=== PATIENT | female | born 1940 | race Caucasian/White ===

== ENCOUNTER 2017-02-16 18:50 | Observation (INO) ==
--- NOTE | 2017-02-16 19:11 | Emergency Department Note ---
Disposition Clinical Impression: Stable angina Chest pain Qualifiers: Chest pain type: chest pain due to myocardial ischemia Ischemic chest pain type : stable angina pectoris Qualified Code(s): I20.8 - Other forms of angina pectoris CKD (chronic kidney disease) Qualifiers: Chronic kidney disease stage: stage 3 (moderate) Qualified Code(s): N18.3 - Chronic kidney disease, stage 3 (moderate) Anemia Qualifiers: Anemia type: iron deficiency Iron deficiency anemia type: other iron deficiency Qualified Code(s): D50.8 - Other iron deficiency anemias Disposition: Admitted As Inpatient Condition: Good Forms: ED Satisfaction Letter Time of Disposition: 21:12 Chest Pain HPI - General Chief Complaint: ED Chest Pain Stated Complaint: chest pain Time Seen by Provider: 02/16/17 18:57 Source: patient Mode of arrival: EMS Limitations: no limitations Vital Signs Reviewed: Yes Nursing Notes Reviewed: Yes - History of Present Illness HPI Narrative: Mrs. Veliz is a 77-year-old woman with a history of CAD, COPD, diabetes, CHF who presents to the ED by EMS for chest pain that has been going on for about 1 week. She said that the pain is intermittent in nature and is brought on by activities such as getting up to use the restroom. Rest does seem to make the pain decreased, however it keeps coming back. She is taking nitroglycerin for this pain which relieves the pain initially but then wears off and the pain comes back. She described the pain as a pressure in her left chest which radiates towards her jaw. She says that the pain is very severe and is wondering the entire time. The pain is also associated with shortness of breath , palpitations and diaphoresis. she has had some nausea with no vomiting associated with this. She does say that this feels almost exactly like previous heart attacks that she has had. In addition to this, the patient says that she has had increased swelling in her left leg which apparently has a prosthetic vein. Severity scale (1-10): 10 - Related Data Home Medications Medication Instructions Recorded Confirmed Atenolol [Tenormin] 50 mg PO DAILY 03/23/15 09/26/16 Cholecalciferol (Vitamin D3) 2,000 unit PO DAILY 03/23/15 09/26/16 [Vitamin D3] Clopidogrel [Plavix] 75 mg PO DAILY 03/23/15 09/26/16 Cyanocobalamin (Vitamin B-12) 1,000 mcg PO DAILY 03/23/15 09/26/16 [Vitamin B-12] Isosorbide MONOnitrate [Isosorbide 120 mg PO DAILY 03/23/15 09/26/16 Mononitrate ER] Magnesium Oxide [Magnesium] 400 mg PO DAILY 03/23/15 09/26/16 Pravastatin Sodium [Pravachol] 40 mg PO DAILY 03/23/15 09/26/16 Warfarin [Coumadin] 2 mg PO 1800 03/23/15 09/26/16 HYDROcodone/Acet 5/325 mg [[place] 1 tab PO Q6H PRN 09/26/16 09/26/16 5-325 mg] Insulin NPH Human Isophane 0 units SQ TID PRN 09/26/16 09/26/16 [Novolin N] Nitroglycerin 0.4 mg PO Q5M PRN 09/26/16 09/26/16 Previous Rx's Medication Instructions Recorded Budesonide/Formoterol 160/4.5 1 puff IH BIDR 30 Days hfa.aer.ad 04/01/15 [Symbicort 160/4.5] Ciprofloxacin [Cipro] 500 mg PO BID #14 tablet 09/26/16 HYDROcodone/Acet 5/325 mg [[place] 1 tab PO Q4H PRN #15 tab 09/26/16 5-325 mg] Allergies Allergy/AdvReac Type Severity Reaction Status Date / Time Hydromorphone [From Dilaudid] Allergy Severe Anaphylaxis Verified 09/26/16 13:12 diphenhydramine Allergy Intermediate See Verified 09/26/16 13:12 Comments acetaminophen [From Percocet] Allergy Hives Verified 09/26/16 13:12 codeine Allergy Hives Verified 09/26/16 13:12 morphine Allergy Hives Verified 09/26/16 13:12 Oxycodone [From Percocet] Allergy Hives Verified 09/26/16 13:12 Penicillins Allergy See Verified 09/26/16 13:12 Comments pioglitazone [From Actos] Allergy See Verified 09/26/16 13:12 Comments ivp dye Allergy Severe Swelling Uncoded 09/26/16 13:12 of Lip/Tongue/Throat Constitutional: Reports: weakness. Denies: fever, chills Eyes: Denies: vision change ENT ED: Denies: congestion Cardiovascular: Reports: chest pain, palpitations, dyspnea on exertion, orthopnea, edema Respiratory: Reports: cough, dyspnea. Denies: sputum production Gastrointestinal: Reports: abdominal pain, nausea. Denies: vomiting, hematemesis Genitourinary: Denies: urgency, dysuria, frequency Musculoskeletal: Reports: neck pain, myalgia. Denies: back pain Integumentary: Denies: rash Neurological: Reports: weakness. 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 Patient appears distressed AAOx3 HEENT: PERRL/EOMI, oropharynx clear, Normocephalic, atraumatic Neck: Supple. No adenopathy. Cardiac: RRR, no murmur, +S1/S2 Pulmonary: CTA bilaterally, however technically challenging exam because patient was unwilling to sit up appropriately Abdomen: soft, nontender, BS noted, no guarding MSK: ROM intact, no joint swelling noted Extremities: Left-sided lower extremity edema worse than right, no cyanosis or clubbing Neuro: A&Ox3, moves all extremities, no focal deficits Psych: Appropriate mood and behavior - General Limitations: no limitations General appearance: alert, in no apparent distress Course Vital Signs Temperature 98.5 F 02/16/17 18:51 Pulse Rate 81 02/16/17 18:51 Respiratory Rate 26 02/16/17 18:51 Blood Pressure 175/82 02/16/17 18:51 O2 Sat by Pulse Oximetry 98 02/16/17 18:51 Temperature 98.5 F 02/16/17 18:51 Pulse Rate 72 02/16/17 20:00 Respiratory Rate 20 02/16/17 20:00 Blood Pressure 174/74 02/16/17 20:00 O2 Sat by Pulse Oximetry 100 02/16/17 20:00 Oxygen Delivery Oxygen Delivery Nasal Cannula Chest Pain - MDM Narrative Medical decision making narrative: I reviewed this patient's labs, imaging, EKG. She does present with 1 week history of chest pain with ST depression in inferolateral leads. Does have a long-standing history of CAD and has had NSTEMIs in the past. Initial troponins were negative at this time. 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 Additionally, the patient does not have tachycardia or other indicators of PE, however she does have a history of DVTs I have ordered a venous Doppler ultrasound which has not been resulted at this time but will be followed up on by the hospitalist. The patient also does have a elevated creatinine however this appears to be chronic and no worse than previous. Additionally the patient does have an anemia which actually seems improved compared to previous visits. On arrival I did provide the patient with aspirin, nitroglycerin paste, and pain medication. I did provide the patient with [place] as because that is when she is home. Additionally the patient says that she did not take her blood pressure medications this morning, which makes sense because her blood pressure is relatively elevated. I have ordered the patient's home medications along with the nitro paste, and sinus without hospitalist. The patient will be admitted for chest pain rule out, and has been accepted by the hospitalist. The patient agrees to this plan. - Medical Records Medical records reviewed: Yes I reviewed the patient's medical records. - Lab Data Lab results reviewed: Yes I reviewed the patient's lab results. Result diagrams: 02/16/17 19:05 02/16/17 19:05 Lab Results 02/16/17 02/16/17 02/16/17 Range/Units 19:05 19:05 19:05 WBC 7.7 (4.3-11.1) K/mcL RBC 3.42 L (3.82-4.97) M/mcL Hgb 10.7 L (11.5-15.4) g/dL Hct 33.0 L (35.3-44.9) % MCV 96.5 (83.0-100.0) fL MCH 31.3 (28.0-33.3) pg MCHC 32.4 (31.6-35.5) g/dL RDW 13.7 (11.5-14.5) % Plt Count 260 (140-400) K/mcL MPV 9.2 L (9.4-12.4) fL Immature Gran % 0.1 (0-4) % Seg Neutrophils % 52.8 % Lymphocytes % 37.6 % Monocytes % 8.1 % Eosinophils % 1.0 % Basophils % 0.4 % Neutrophils # 4.0 (1.6-8.9) K/mcL Lymphocytes # 2.9 (0.6-4.6) K/mcL Monocytes # 0.6 (0.0-1.3) K/mcL Eosinophils # 0.1 (0.0-0.6) K/mcL Basophils # 0.0 (0.0-0.2) K/mcL PT 20.7 H (9.4-12.1) Seconds INR 1.9 Sodium 136 (136-145) mEq/L Potassium 4.3 (3.5-5.1) mEq/L Chloride 105 (98-107) mEq/L Carbon Dioxide 27 (23-29) mEq/L BUN 42 H (8-23) mg/dL Creatinine 1.47 H (0.60-1.20) mg/dL Est GFR ( Amer) 42 L (> 60) Est GFR (Non-Af Amer) 35 L (> 60) BUN/Creatinine Ratio 29 H (6-26) Glucose 195 H (70-105) mg/dL Calculated Osmolality 298 (280-300) Calcium 9.3 (8.6-10.3) mg/dL Troponin I (< 0.04) ng/mL 02/16/17 Range/Units 19:05 WBC (4.3-11.1) K/mcL RBC (3.82-4.97) M/mcL Hgb (11.5-15.4) g/dL Hct (35.3-44.9) % MCV (83.0-100.0) fL MCH (28.0-33.3) pg MCHC (31.6-35.5) g/dL RDW (11.5-14.5) % Plt Count (140-400) K/mcL MPV (9.4-12.4) fL Immature Gran % (0-4) % Seg Neutrophils % % Lymphocytes % % Monocytes % % Eosinophils % % Basophils % % Neutrophils # (1.6-8.9) K/mcL Lymphocytes # (0.6-4.6) K/mcL Monocytes # (0.0-1.3) K/mcL Eosinophils # (0.0-0.6) K/mcL Basophils # (0.0-0.2) K/mcL PT (9.4-12.1) Seconds INR Sodium (136-145) mEq/L Potassium (3.5-5.1) mEq/L Chloride (98-107) mEq/L Carbon Dioxide (23-29) mEq/L BUN (8-23) mg/dL Creatinine (0.60-1.20) mg/dL Est GFR ( Amer) (> 60) Est GFR (Non-Af Amer) (> 60) BUN/Creatinine Ratio (6-26) Glucose (70-105) mg/dL Calculated Osmolality (280-300) Calcium (8.6-10.3) mg/dL Troponin I < 0.03 (< 0.04) ng/mL - Radiology Data Radiology results reviewed: Yes I reviewed the patient's radiology results. - EKG Data EKG attestation: Yes I reviewed and interpreted this EKG. EKG results narrative: EKG demonstrates normal sinus rhythm with a ventricular rate of 81 UT interval 159 QRS duration [address] depression in inferolateral leads specifically in leads 1 and 2 with apparent reciprocal changes. Heart Score - Score History: Moderately Suspicious EKG: Significant ST-Depression Age: Greater than 65 Risk Factors: Equal/Greater than 3 risk factor or history of atherosclerotic disease Troponin: Less than normal limit HEART Score Total: 7
--- NOTE | 2017-02-16 19:12 | Emergency Department Note ---
START Narrative - START START: I did see the patient me upon arrival and also spoke with the paramedics and the patient does have chest pain. Radiates under the breast. Occasionally radiates the back. She does have a history of extensive vascular Hellums I did review the record. I did review her EKG here today showing a normal sinus rhythm with a rate of 81 and evidence of inferior lateral ischemia. The patient does have labs ordered. The patient will be admitted to the hospital. 1911
[2017-02-16 19:19] LABS: Basophils % 0.4 %; Eosinophils # 0.1 K/mcL (0.0-0.6); Hemoglobin 10.7 g/dL (11.5-15.4); Immature Granulocytes % 0.1 % (0-4); Lymphocytes # 2.9 K/mcL (0.6-4.6); Lymphocytes % 37.6 %; Mean Corpuscular HGB Conc 32.4 g/dL (31.6-35.5); Mean Corpuscular Hemoglobin 31.3 pg (28.0-33.3); Mean Corpuscular Volume 96.5 fL (83.0-100.0); Mean Platelet Volume 9.2 fL (9.4-12.4); Monocytes # 0.6 K/mcL (0.0-1.3); Monocytes % 8.1 %; Platelet Count 260 K/mcL (140-400); Red Blood Count 3.42 M/mcL (3.82-4.97); Red Cell Distribution Width 13.7 % (11.5-14.5); Segmented Neutrophils % 52.8 %
[2017-02-16 19:26] LABS: INR 1.9; Prothrombin Time 20.7 Seconds (9.4-12.1)
[2017-02-16 19:43] LABS: Calcium 9.3 mg/dL (8.6-10.3); Potassium 4.3 mEq/L (3.5-5.1)
[2017-02-16] MEDS ORDERED: Aspirin 81 MG TAB.CHEW PO STA (19:54)
[2017-02-16] MEDS ORDERED: *HR* HYDROcodone/Acet 5/325 mg TABLET PO ONE (19:55)
[2017-02-16] MEDS ORDERED: Nitroglycerin 0.4 MG TAB.SUBL SL PRN (19:55)
[2017-02-16] MEDS ORDERED: Nitroglycerin 1 INCH/GM PACKET TP ONE (21:03)
[2017-02-16] MEDS ORDERED: Naloxone 0.4 MG/ML INJ IVP PRN (22:44)
--- NOTE | 2017-02-16 22:56 | Internal Med History&Physical ---
<Jacinto Tavarez - Last Filed: 02/16/17 22:51> Date of Encounter: 02/16/17 Time of Encounter: 22:51 Assessment and Plan (1) Chest pain Current visit: Yes Status: Acute Presents today with left-sided chest pain with radiation to left neck, left shoulder and left axilla. Due to risk factors and prior history and concern the patient may be having an acute coronary event. Patient states chest pain is worse with exertion and that she is dyspneic. Chest pain was not responsive to sublingual nitroglycerin. However, and has somewhat improved with nitroglycerin paste. Additionally, she appears to have chest wall tenderness to palpation. She is currently resting in bed with mild discomfort continuing her left chest. She has multiple risk factors including prior MN, prior CABG, CAD, diabetes. Initial troponin negative at 0.03, EKG shows no ischemia. CXR showed mild pulmonary edema. Due to prior history I will continue to workup to rule out ACS -Obtain TTE now -Serial troponins -Continuous telemetry, continuous SPO2 monitoring -Continue beta maria d, statin, Plavix, warfarin -She received 325 of aspirin in the ED, start 81 mg aspirin daily -Fasting lipid panel in the morning -Continue home medications -Nuclear Stress test in the morning -Nothing by mouth after midnight Qualifiers: Chest pain type: chest pain due to myocardial ischemia Ischemic chest pain type: stable angina pectoris Qualified Code(s): I20.8 - Other forms of angina pectoris (2) HTN (hypertension) Current visit: Yes Status: Acute History of hypertension. Systolic blood pressure today in the 160s. Patient is on atenolol at home for hypertension. I will add hydralazine 10 mg IV push every 6 hours when necessary for SBP greater than 160 Qualifiers: Hypertension type: unspecified Qualified Code(s): I10 - Essential (primary ) hypertension (3) Acute pain of left lower extremity Current visit: Yes Status: Acute Presents today with acute pain and left lower extremity. Left lower extremity is extremely tender to palpation. No circulatory compromise noted upon examination. Palpable PT/DP pulses, no mottling, edema or cyanosis noted. -Due to prior history of DVTs and PE I will obtain bilateral venous Doppler of lower extremity -Patient is on Coumadin for prior history of DVT and PE however she is subtherapeutic at this time -Heparin 5000 units subcutaneous twice a day -Continue to monitor PT/INR -Continue Coumadin with pharmacy to dose (4) CKD (chronic kidney disease) Current visit: Yes Status: Chronic History of stage III renal disease. Serum creatinine at patient's baseline. Recheck serum creatinine in the morning Qualifiers: Chronic kidney disease stage: stage 3 (moderate) Qualified Code(s): N18.3 - Chronic kidney disease, stage 3 (moderate) (5) Anemia Current visit: Yes Status: Chronic History of iron deficiency anemia. Hemoglobin and hematocrit 10.7/33 which is patient baseline, denies any hematochezia, hematemesis, melena. Continue to monitor, no active bleeding noted Qualifiers: Anemia type: iron deficiency Iron deficiency anemia type: other iron deficiency Qualified Code(s): D50.8 - Other iron deficiency anemias (6) Diabetes Current visit: Yes Status: Chronic History of type 2 diabetes. 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 Currently not on aspirin She noted that she is on Coumadin for history of DVTs Patient is on beta maria d and will continue this at this time Presents today with chest pain, initial troponin negative Continuous telemetry, continuous SPO2 monitoring see additional plan above Qualifiers: [place] vs. transplanted heart: [place] heart Associated angina: with unspecified angina Qualified Code(s): I25.709 - Atherosclerosis of coronary artery bypass graft(s), unspecified, with unspecified angina pectoris Internal Medicine - H&P: HPI Chief complaint: chest pain, SOB, LLE tenderness Admitted From: Home Plans for Post Hospital Care: Home History of present illness: Ms. Veliz is a 77 year old female with a PMH of CKD stage III, CAD, COPD, DM, CHF, arthritis, kidney stones, MN, prior PE and prior CABG. She presents at [facility] today with a one-week history of left-sided chest pain with radiation to the left shoulder and left jaw and left axilla. She reports that with the chest pain is also experiencing shortness of breath and lightheadedness. She denies any diaphoresis or nausea. Additionally, she denies any fevers, chills, abdominal pain, vomiting or diarrhea. She does admit to left lower extremity swelling and tenderness. Initial troponin in the emergency department was 0.03. Chest x-ray shows mild pulmonary edema. Past Med Surg Social Fam HX - Past Medical History Medical history: arthritis, cancer, CHF, COPD, coronary artery disease, DVT, diabetes, hypertension, kidney stones, myocardial infarction, pulmonary embolus , renal disease Psychiatric history: no psych history - Past Surgical History Surgical History: ureteral stent, other - Social History Smoking Status: Never smoker Smokeless Tobacco Status: No Alcohol use: none Drug use: none - Additional Family History Additional family history: Noncontributory Internal Medicine - H&P: Meds Atenolol [Tenormin] 50 mg PO DAILY 03/23/15 [History] Cholecalciferol (Vitamin D3) [Vitamin D3] 2,000 unit PO DAILY 03/23/15 [History] Clopidogrel [Plavix] 75 mg PO DAILY 03/23/15 [History] Cyanocobalamin (Vitamin B-12) [Vitamin B-12] 1,000 mcg PO DAILY 03/23/15 [ History] Isosorbide MONOnitrate [Isosorbide Mononitrate ER] 120 mg PO DAILY 03/23/15 [ History] Magnesium Oxide [Magnesium] 400 mg PO DAILY 03/23/15 [History] Pravastatin Sodium [Pravachol] 40 mg PO DAILY 03/23/15 [History] Warfarin [Coumadin] 2 mg PO 1800 03/23/15 [History] Budesonide/Formoterol 160/4.5 [Symbicort 160/4.5] 1 puff IH BIDR 30 Days hfa.aer.ad 04/01/15 [Rx] Ciprofloxacin [Cipro] 500 mg PO BID #14 tablet 09/26/16 [Rx] HYDROcodone/Acet 5/325 mg [[place] 5-325 mg] 1 tab PO Q4H PRN #15 tab 09/26/16 [Rx ] HYDROcodone/Acet 5/325 mg [[place] 5-325 mg] 1 tab PO Q6H PRN 09/26/16 [History] Insulin NPH Human Isophane [Novolin N] 0 units SQ TID PRN 09/26/16 [History] Nitroglycerin 0.4 mg PO Q5M PRN 09/26/16 [History] 3 Allergy/AdvReac Type Severity Reaction Status Date / Time Hydromorphone [From Dilaudid] Allergy Severe Anaphylaxis Verified 09/26/16 13:12 diphenhydramine Allergy Intermediate See Verified 09/26/16 13:12 Comments acetaminophen [From Percocet] Allergy Hives Verified 09/26/16 13:12 codeine Allergy Hives Verified 09/26/16 13:12 morphine Allergy Hives Verified 09/26/16 13:12 Oxycodone [From Percocet] Allergy Hives Verified 09/26/16 13:12 Penicillins Allergy See Verified 09/26/16 13:12 Comments pioglitazone [From Actos] Allergy See Verified 09/26/16 13:12 Comments ivp dye Allergy Severe Swelling Uncoded 09/26/16 13:12 of Lip/Tongue/Throat All Systems PM: A 10-system review of systems was performed and is negative for pertinent findings except as documented above in the HPI. - Constitutional Constitutional: no chills, no fever(s), no night sweats - Cardiovascular Cardiovascular ROS IM: as per HPI - Respiratory Respiratory: as per HPI - Gastrointestinal Gastrointestinal: no abdominal pain, no diarrhea, no hematemesis, no hematochezia, no melena, no nausea, no vomiting - Genitourinary Genitourinary: no change in urinary stream, no dysuria, no flank pain, no hematuria - Musculoskeletal Musculoskeletal ROS IM: no numbness, no tingling - Integumentary Integumentary IM: no rash, no unusual bruising - Neurological Neurological ROS: no confusion, no convulsions, no focal weakness, no numbness, no tingling, no tremor(s) - Constitutional Vitals: Temp Pulse Resp BP Pulse Ox 98.5 F 68 16 168/68 100 02/16/17 18:51 02/16/17 21:55 02/16/17 21:55 02/16/17 21:55 02/16/17 21:55 General appearance: Present: cooperative, mild distress, A&O X 3, answers questions appropriately - Head Head exam: Present: atraumatic, normocephalic - Eye Eye exam: Present: PERRL, conjuntiva pink, sclera anicteric Pupils: Present: PERRL - Neck Neck exam general surgery: Absent: lymphadenopathy - Respiratory Respiratory exam: Present: chest wall tenderness, decreased breath sounds, CTAB. Absent: accessory muscle use, rales, rhonchi, wheezes, tachypnea - Cardiovascular Cardiovascular exam: Present: RRR, +S1, +S2. Absent: bradycardia, diastolic murmur, gallop, rubs, systolic murmur, tachycardia - GI/Abdominal GI/Abdominal exam: Present: normal bowel sounds, soft, no peritoneal signs. Absent: distended, tenderness - Extremities Exam Extremities exam: Present: calf tenderness (LLE), normal capillary refill, tenderness (LLE), radial pulses palpable and symmetrical. Absent: cyanotic, mottling, pedal edema, warm - Neurological Exam Neurological exam: Present: alert, oriented X3 - Skin Skin exam: Present: dry, intact Internal Med - H&P Results - Labs CBC & Chem 7: 02/16/17 19:05 02/16/17 19:05 - EKG Data -: EKG Interpreted by Myself EKG shows normal: sinus rhythm - EKG Data Prior EKG available for review: yes When compared to previous EKG: there is no significant change Interpretation IM: normal EKG - Diagnostic Studies Chest x-ray Status: image reviewed by me Additional comments: Mild pulmonary edema - VTE Reasons for not Prescribing Prophylaxis: Not indicated-Anticoagulated or INR therapeutic <Jina Sewell - Last Filed: 02/17/17 06:14> Date of Encounter: 02/17/17 Time of Encounter: 03:20 Internal Medicine - H&P: HPI History of present illness: Ms. Veliz is a 77 year old female All Systems PM: A 10-system review of systems was performed and is negative for pertinent findings except as documented above in the HPI. - Constitutional Vitals: Temp Pulse Resp BP Pulse Ox 98.7 F 57 19 122/64 98 02/17/17 04:28 02/17/17 04:28 02/17/17 04:28 02/17/17 04:28 02/17/17 04:28 Internal Med - H&P Results - Labs CBC & Chem 7: 02/17/17 00:29 02/17/17 00:29 Labs: Short CBC 02/17/17 Range/Units 00:29 WBC 8.4 (4.3-11.1) K/mcL Hgb 9.6 L (11.5-15.4) g/dL Hct 29.1 L (35.3-44.9) % Plt Count 247 (140-400) K/mcL Neutrophils # 3.9 (1.6-8.9) K/mcL BMP 02/17/17 00:29 Sodium 136 Potassium 4.3 Chloride 106 Carbon Dioxide 22 L BUN 38 H Creatinine 1.19 Glucose 147 H Calcium 9.0 Cardiac Enzymes 02/17/17 Range/Units 00:29 Troponin I < 0.03 (< 0.04) ng/mL - Attending Attestation Patient is a 77y/o female admitted for chest pain. Patient independently seen and examined at bedside. Resting in bed and reports of pain being controlled with nitro will admit to r/o ACS case discussed with CARIN Tavarez, I agree with his documented findings, assessment, and plan except as listed above
[2017-02-16] MEDS ORDERED: *HR* Dextrose 50 % in Water (Syg) 50 ML SYRINGE IVP PRN (23:05)
[2017-02-16] MEDS ORDERED: D5% in Water 1,000 ML IVC PRN (23:05)
[2017-02-16] MEDS ORDERED: Dextrose Gel 15 GM/37.5 ML TUBE PO PRN ×2 (23:05)
[2017-02-17 00:37] LABS: Basophils % 0.5 %; Eosinophils # 0.1 K/mcL (0.0-0.6); Eosinophils % 1.1 %; Hematocrit 29.1 % (35.3-44.9); Hemoglobin 9.6 g/dL (11.5-15.4); Immature Granulocytes % 0.4 % (0-4); Lymphocytes # 3.7 K/mcL (0.6-4.6); Lymphocytes % 43.8 %; Mean Corpuscular Hemoglobin 31.7 pg (28.0-33.3); Mean Platelet Volume 9.1 fL (9.4-12.4); Monocytes # 0.6 K/mcL (0.0-1.3); Monocytes % 7.5 %; Neutrophils # 3.9 K/mcL (1.6-8.9); Platelet Count 247 K/mcL (140-400); Red Blood Count 3.03 M/mcL (3.82-4.97); Red Cell Distribution Width 13.7 % (11.5-14.5); Segmented Neutrophils % 46.7 %
[2017-02-17 00:57] LABS: Chol/HDL Ratio 3.9 (0-4.9); Potassium 4.3 mEq/L (3.5-5.1)
[2017-02-17] MEDS: Insulin LISPRO 300 UNITS/3 ML VIAL SQ SCH ×5 (01:27→20:51)
[2017-02-17] MEDS: *HR* Heparin 5,000 UNIT/ML VIAL SQ SCH ×2 (01:41→03:29)
[2017-02-17] MEDS ORDERED: *HR* HYDROcodone/Acet 5/325 mg TABLET PO ONE (03:21)
[2017-02-17 06:17] LABS: INR 1.8
[2017-02-17] MEDS: Aspirin 81 MG TAB.CHEW PO SCH (08:20)
[2017-02-17] MEDS: Magnesium Oxide 400 MG TABLET PO SCH (08:20)
[2017-02-17] MEDS: Cholecalciferol (D-3) 1,000 UNIT TABLET PO SCH (08:20)
[2017-02-17] MEDS: Cyanocobalamin (B-12) 1,000 MCG TABLET PO SCH (08:20)
[2017-02-17] MEDS: Isosorbide MONOnitrate (24 HR) 60 MG TAB.ER.24H PO SCH (08:20)
[2017-02-17] MEDS ORDERED: Perflutren Lipid Microsphere 1.3 ML in 0.9 % Sodium Chloride 8.7 ML IVP ONE (08:42)
--- NOTE | 2017-02-17 08:54 | Electrocardiograph Report ---
[address] [place], [place] [address] Test Date: 2017-02-16 Pat Name: China Veliz Department: 102 Room: 3B24 Gender: F Gis Mapping Technician: Maty : 1940 Requested By: Willy Martines Order Number: [id number] Reading MD: Alden Smith MD Measurements Intervals [place] Rate: 81 P: 54 ME: 159 QRS: 17 QRSD: 104 T: 61 QT: 355 QTc: 393 Interpretive Statements SINUS RHYTHM INFEROLATERAL ISCHEMIA Electronically Signed On 02-17-2017 8:52:50 EST by Alden Smith MD
[2017-02-17] MEDS ORDERED: NON-FORMULARY MEDICATION 1 EACH EACH (Pravastatin Sodium [Pravachol] 40 MG) PO SCH (09:00)
[2017-02-17] MEDS: Budesonide/Formoterol 160/4.5 MDI IH SCH ×3 (10:59→22:13)
[2017-02-17 13:06] LABS: Bilirubin,Urine Negative (Negative); Blood,Urine Large (Negative); Clarity,Urine Turbid (Clear); Glucose,Urine (UA) Normal (Normal); Ketones,Urine Trace mg/dL (Negative); Leukocyte Esterase,Urine Large (Negative); Nitrite,Urine Negative (Negative); Protein,Urine >=300 mg/dL (Neg-Trace); Specific Gravity,Urine 1.019 (1.010-1.025); Urobilinogen,Urine Normal (Normal)
[2017-02-17 13:08] LABS: Bacteria,Urine None Seen per hpf (None-Few); Color,Urine Pink (Yellow); RBC,Urine TNTC per hpf (0-3); Squamous Epithelial Cell,Urine Many per lpf (None-Few); WBC,Urine TNTC per hpf (0-3)
[2017-02-17] MEDS: *HR* HYDROcodone/Acet 5/325 mg TABLET PO PRN (13:52)
--- NOTE | 2017-02-17 15:25 | Internal Med Progress Note ---
Date of Encounter: 02/17/17 Time of Encounter: 15:19 - Assessment and plan (1) Hydronephrosis Current Visit: Yes Status: Acute Assessment and plan: 09/2016 renal US with chronic left hydronephrosis unchanged from 02/[address] Urine tea colored, foul, malodorous with thick purulent matter. Rudd catheter placed but removed due to patient discomfort. Empirically treat with Cipro, urology consult. Urince cx ordered. ABD CT/stone protocol pending Qualifiers: Hydronephrosis type: unspecified Qualified Code(s): N13.30 - Unspecified hydronephrosis (2) CAD (coronary artery disease) of bypass graft Current Visit: Yes Status: Acute Assessment and plan: hx CABG. Now with left-sided chest pain with radiation to left neck, left shoulder and left axilla. CXR non-acute. Serial troponins negative, EKG without acute ST changes. TTE with EF 50%, mild diastolic dysfunction and no wall motion abnormalities. Refusing stress test. Cont ASA, within, BB, statin. Cardiology consulted Qualifiers: [place] vs. transplanted heart: [place] heart Associated angina: with unspecified angina Qualified Code(s): I25.709 - Atherosclerosis of coronary artery bypass graft(s), unspecified, with unspecified angina pectoris (3) HTN (hypertension) Current Visit: Yes Status: Acute Assessment and plan: per hx. BP controlled. Cont home BP medication. Monitor BP and titrate PRN Qualifiers: Hypertension type: unspecified Qualified Code(s): I10 - Essential (primary ) hypertension (4) CKD (chronic kidney disease) Current Visit: Yes Status: Chronic Assessment and plan: per hx. Renal function at baseline. Nephrotoxic agents as possible. 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 Cont coumadin (6) DVT prophylaxis Current Visit: Yes Status: Acute Assessment and plan: coumadin - Subjective Interval history: Seen and examined at bedside, she still complains of chest pain. She is refusing stress test. Urine noted to be malodorous, brown with thick relent matter. Patient states that she is supposed to have a Rudd catheter in complains of dysuria and vaginal burning. No shortness of breath. Initially requested a Rudd catheter which was placed however this was removed due to pain and discomfort. - Constitutional Vitals: Temp Pulse Resp BP Pulse Ox 98.5 F 66 14 146/73 100 02/17/17 10:59 02/17/17 10:59 02/17/17 10:59 02/17/17 10:59 02/17/17 10:59 General appearance: Present: cooperative, mild distress, A&O X 3, answers questions appropriately - Head Head exam: Present: atraumatic, normocephalic - Eye Eye exam: Present: PERRL, conjuntiva pink, sclera anicteric Pupils: Present: PERRL - Neck Neck exam general surgery: Present: supple, trachea midline. Absent: lymphadenopathy - Respiratory Respiratory exam: Present: CTAB. Absent: accessory muscle use, rales, rhonchi, wheezes - Cardiovascular Cardiovascular exam: Present: RRR, +S1, +S2. Absent: diastolic murmur, gallop, rubs, systolic murmur - GI/Abdominal GI/Abdominal exam: Present: normal bowel sounds, soft, no peritoneal signs. Absent: distended, tenderness - Extremities Exam Extremities exam: Present: warm, radial pulses palpable and symmetrical. Absent : calf tenderness, cyanotic, pedal edema - Neurological Exam Neurological exam: Present: CN II-XII intact, oriented X3, no focal deficits. Absent: pronater drift, facial droop, speech deficit - Skin Skin exam: Present: dry, intact Internal Medicine: Result - Labs CBC & Chem 7: 02/17/17 00:29 02/17/17 00:29 Labs: Short CBC 02/17/17 Range/Units 00:29 WBC 8.4 (4.3-11.1) K/mcL Hgb 9.6 L (11.5-15.4) g/dL Hct 29.1 L (35.3-44.9) % Plt Count 247 (140-400) K/mcL Neutrophils # 3.9 (1.6-8.9) K/mcL BMP 02/17/17 00:29 Sodium 136 Potassium 4.3 Chloride 106 Carbon Dioxide 22 L BUN 38 H Creatinine 1.19 Glucose 147 H Calcium 9.0 Cardiac Enzymes 02/17/17 02/17/17 Range/Units 00:29 05:56 Troponin I < 0.03 < 0.03 (< 0.04) ng/mL Urine 02/17/17 Range/Units 12:30 Urine Color [place] (Yellow) Urine Clarity Turbid A (Clear) Urine pH 7.0 (5.0-8.0) pH Units Ur Specific [place] 1.019 (1.010-1.025) Urine Protein >=300 H (Neg-Trace) mg/dL Urine Glucose (UA) Normal (Normal) mg/dL - ABG Interpretation ABG results: PT/INR, D-dimer PT 20.0 Seconds (9.4-12.1) H 02/17/17 05:56 - Impressions Impressions Echocardiogram 02/17/17 22:44 Impressions: LVEF 50-55%. Normal LV chamber size, wall thickness and function. Atypical septal motion consistent with post-operative status. Mild left ventricular diastolic dysfunction. Normal right ventricular structure and function. Mild mitral regurgitation. Mild tricuspid regurgitation. Mild pulmonary hypertension. Estimated RVSP 38 mmHg. Left Ventricular Wall Motion: Rest Echo Findings All wall segments showed normal motion. Findings: Study Quality * Technically adequate exam. ECG Findings * Normal sinus rhythm. Left Ventricle * LVEF 50-55%. * Normal LV chamber size, wall thickness and function. * Atypical septal motion consistent with post-operative status. * Mild left ventricular diastolic dysfunction. Right Ventricle * Normal right ventricular structure and function. Left Atrium * Mild to moderately dilated left atrium. Right Atrium * Mildly dilated right atrium. Interatrial Septum * Interatrial septum not well evaluated. Aortic Valve * Trileaflet aortic valve. * Mildly sclerotic aortic valve leaflets. * No aortic regurgitation. * No aortic stenosis. Mitral Valve * Mildly thickened mitral valve leaflets. * Mild mitral annular calcification * Mild mitral regurgitation. * No mitral stenosis. Tricuspid Valve * Normal tricuspid valve structure. * Mild tricuspid regurgitation. * Mild pulmonary hypertension. Estimated RVSP 38 mmHg. Pulmonic Valve * Normal pulmonic valve structure and function. * Trace pulmonic regurgitation. Aorta * Normally sized aortic root. Pericardium * The pericardium appears normal. IVC * Normal IVC dimensions and inspiratory collapse. Pulmonary Artery * Normal visualized portions of the main pulmonary artery. - VTE Reasons for not Prescribing Prophylaxis: Not indicated-Anticoagulated or INR therapeutic Consult Discharge Plan - Plan Referrals: Danny Rodarte Jr, MD [Primary Care Provider] - 03/01/17 10:00 am
[2017-02-17] MEDS ORDERED: Warfarin perPT PO PRN (18:00)
[2017-02-17] MEDS ORDERED: *HR* Warfarin 2 MG TABLET PO ONE (18:00)
--- NOTE | 2017-02-17 20:36 | Urology - Consult Note ---
Date of Encounter: 02/17/17 Time of Encounter: 17:34 - Assessment and Plan (1) Hydronephrosis Current Visit: Yes Status: Acute Assessment and plan: It appears the hydronephrosis is somewhat chronic and been present over the last year. Dr. Dubose attempted a retrograde pyelogram and stent placement but was unsuccessful secondary to murky urine and poor visibility. The procedure was abandoned. We'll perform a CT scan at this hospitalization to better evaluate the etiology of the hydronephrosis. I will be reluctant to proceed with surgical intervention (cysto and stent) during this hospitalization as the condition is chronic and Dr. Dubose was unsuccessful earlier in the year. Further recommendations after the CT scan. Qualifiers: Hydronephrosis type: unspecified Qualified Code(s): N13.30 - Unspecified hydronephrosis (2) Urine purulent Current Visit: Yes Status: Acute Assessment and plan: This problem was present at the time of Dr. Dubose's attempted stent placement. Cultures and consider long-term antibiotics. CT scan will better determine if there is a concerning etiology for the hydronephrosis and purulent urine Urology CN:HPI Consult date: 02/17/17 Reason for consult Urology: Hydronephrosis History of present illness: Patient admitted for chest pain. Found to have cloudy extremely foul-smelling urine. Catheter placement drained thick purulent urine. History of hydronephrosis. Reviewing history and appears that Dr. Dubose attempted a retrograde pyelogram and ureteral stent placement earlier in the year but was unsuccessful secondary to significant bleeding and murky urine. No further follow-up after. Patient reports no flank pain. Past Med Surg Social Fam HX - Past Medical History Medical history: arthritis, cancer, CHF, COPD, coronary artery disease, DVT, diabetes, hypertension, kidney stones, myocardial infarction, pulmonary embolus , renal disease Psychiatric history: no psych history - Past Surgical History Surgical History: ureteral stent, other - Social History Smoking Status: Never smoker Smokeless Tobacco Status: No Alcohol use: none Drug use: none - Family History Mother Hx Family Cardiac Disorders: Yes Hx Family Neurologic Disorders: Yes (CVA) Medications and Allergies Atenolol [Tenormin] 50 mg PO BID 03/23/15 [History] Cholecalciferol (Vitamin D3) [Vitamin D3] 2,000 unit PO DAILY 03/23/15 [History] Clopidogrel [Plavix] 75 mg PO DAILY 03/23/15 [History] Cyanocobalamin (Vitamin B-12) [Vitamin B-12] 1,000 mcg PO DAILY 03/23/15 [ History] Isosorbide MONOnitrate [Isosorbide Mononitrate ER] 120 mg PO DAILY 03/23/15 [ History] Magnesium Oxide [Magnesium] 400 mg PO BID 03/23/15 [History] Pravastatin Sodium [Pravachol] 40 mg PO DAILY 03/23/15 [History] Warfarin [Coumadin] 2 - 4 mg PO DAILY 03/23/15 [History] HYDROcodone/Acet 5/325 mg [[place] 5-325 mg] 1 tab PO Q6H PRN 09/26/16 [History] Insulin NPH Human Isophane [Novolin N] 25 units SQ QAM 09/26/16 [History] Nitroglycerin 0.4 mg PO Q5M PRN 09/26/16 [History] Insulin NPH Human Isophane [Novolin N] 15 unit SQ QPM 02/17/17 [History] 3 Allergy/AdvReac Type Severity Reaction Status Date / Time Hydromorphone [From Dilaudid] Allergy Severe Anaphylaxis Verified 09/26/16 13:12 diphenhydramine Allergy Intermediate See Verified 09/26/16 13:12 Comments acetaminophen [From Percocet] Allergy Hives Verified 09/26/16 13:12 codeine Allergy Hives Verified 09/26/16 13:12 morphine Allergy Hives Verified 09/26/16 13:12 Oxycodone [From Percocet] Allergy Hives Verified 09/26/16 13:12 Penicillins Allergy See Verified 09/26/16 13:12 Comments pioglitazone [From Actos] Allergy See Verified 09/26/16 13:12 Comments ivp dye Allergy Severe Swelling Uncoded 09/26/16 13:12 of Lip/Tongue/Throat Review of Systems - Constitutional fatigue, weakness, no fever(s) - EENT Nose, mouth and throat: no dizziness - Cardiovascular chest pain - Respiratory no cough - Gastrointestinal abdominal pain - Genitourinary Genitourinary: dysuria, vaginal odor - Musculoskeletal back pain - Integumentary no erythema - Neurological no confusion - Psychiatric no anxiety - Hematologic/Lymphatic no easy bleeding - Allergic/Immunologic no throat swelling Exam Initial Vital Signs Temp Pulse Resp BP Pulse Ox 98.5 F 81 26 175/82 98 02/16/17 18:51 02/16/17 18:51 02/16/17 18:51 02/16/17 18:51 02/16/17 18:51 - General physical appearance Present: no distress, chronically ill - Eyes Present: PERRL, conjunctiva is clear - ENT Present: normal nares - Neck Present: no masses - Respiratory Present: normal respiratory effort - Cardiovascular Cardiovascular exam IM: RRR - Abdomen Abdomen: Present: soft, suprapubic tenderness. Absent: masses - Neurologic Present: confused. Absent: disoriented - Additional Findings no cva tenderness Urology Results - Labs 02/17/17 00:29 02/17/17 00:29 Abnormal lab results RBC 3.03 M/mcL (3.82-4.97) L 02/17/17 00:29 Hgb 9.6 g/dL (11.5-15.4) L 02/17/17 00:29 Hct 29.1 % (35.3-44.9) L 02/17/17 00:29 MPV 9.1 fL (9.4-12.4) L 02/17/17 00:29 PT 20.0 Seconds (9.4-12.1) H 02/17/17 05:56 Carbon Dioxide 22 mEq/L (23-29) L 02/17/17 00:29 BUN 38 mg/dL (8-23) H 02/17/17 00:29 Est GFR ( Amer) 54 (> 60) L 02/17/17 00:29 Est GFR (Non-Af Amer) 44 (> 60) L 02/17/17 00:29 BUN/Creatinine Ratio 32 (6-26) H 02/17/17 00:29 Glucose 147 mg/dL (70-105) H 02/17/17 00:29 POC Glucose 288 (58-89) H 02/17/17 17:09 LDL Cholesterol, Calc 111 mg/dL (0-99) H 02/17/17 00:29 Ur Specimen Adequacy See below A 02/17/17 12:30 Urine Clarity Turbid (Clear) A 02/17/17 12:30 Urine Protein >=300 mg/dL (Neg-Trace) H 02/17/17 12:30 Urine Ketones Trace mg/dL (Negative) H 02/17/17 12:30 Urine Blood Large (Negative) H 02/17/17 12:30 Ur Leukocyte Esterase Large (Negative) H 02/17/17 12:30 Urine Microscopic RBC TNTC per hpf (0-3) H 02/17/17 12:30 Urine Microscopic WBC TNTC per hpf (0-3) H 02/17/17 12:30 Ur Squamous Epith Cells Many per lpf (None-Few) H 02/17/17 12:30 Diabetes panel 02/17/17 02/17/17 Range/Units 00:29 00:29 Sodium 136 (136-145) mEq/L Potassium 4.3 (3.5-5.1) mEq/L Chloride 106 (98-107) mEq/L Carbon Dioxide 22 L (23-29) mEq/L BUN 38 H (8-23) mg/dL Creatinine 1.19 (0.60-1.20) mg/dL Glucose 147 H (70-105) mg/dL Calcium 9.0 (8.6-10.3) mg/dL Triglycerides 126 (< 150) mg/dL HDL Cholesterol 47 (40-59) mg/dL Calcium panel 02/17/17 Range/Units 00:29 Calcium 9.0 (8.6-10.3) mg/dL Pituitary panel 02/17/17 Range/Units 00:29 Sodium 136 (136-145) mEq/L Potassium 4.3 (3.5-5.1) mEq/L Chloride 106 (98-107) mEq/L Carbon Dioxide 22 L (23-29) mEq/L BUN 38 H (8-23) mg/dL Creatinine 1.19 (0.60-1.20) mg/dL Glucose 147 H (70-105) mg/dL Calcium 9.0 (8.6-10.3) mg/dL Adrenal panel 02/17/17 Range/Units 00:29 Sodium 136 (136-145) mEq/L Potassium 4.3 (3.5-5.1) mEq/L Chloride 106 (98-107) mEq/L Carbon Dioxide 22 L (23-29) mEq/L BUN 38 H (8-23) mg/dL Creatinine 1.19 (0.60-1.20) mg/dL Glucose 147 H (70-105) mg/dL Calcium 9.0 (8.6-10.3) mg/dL All other labs normal. Consult Discharge Plan - Plan Referrals: Danny Rodarte Jr, MD [Primary Care Provider] - 03/01/17 10:00 am
[2017-02-18 04:03] LABS: Hematocrit 27.9 % (35.3-44.9); Hemoglobin 9.1 g/dL (11.5-15.4); Mean Corpuscular HGB Conc 32.6 g/dL (31.6-35.5); Mean Corpuscular Hemoglobin 31.8 pg (28.0-33.3); Mean Corpuscular Volume 97.6 fL (83.0-100.0); Mean Platelet Volume 9.6 fL (9.4-12.4); Platelet Count 250 K/mcL (140-400); Red Blood Count 2.86 M/mcL (3.82-4.97); Red Cell Distribution Width 13.6 % (11.5-14.5)
[2017-02-18 04:15] LABS: INR 1.8; Prothrombin Time 19.6 Seconds (9.4-12.1)
[2017-02-18 04:23] LABS: Calcium 8.7 mg/dL (8.6-10.3); Potassium 4.8 mEq/L (3.5-5.1)
--- NOTE | 2017-02-18 07:09 | Urology Progress Note ---
Date of Encounter: 02/18/17 Time of Encounter: 07:06 - Assessment and Plan (1) Hydronephrosis Current Visit: Yes Status: Acute Assessment and plan: I reviewed the CT scan. no evidence of ureter stone. appears similar to previous imaging. pt's vitals are stable. increase in Cr. I do not feel urgent intervention is indicated at this time as she does not appear septic (uroseptic). Will need to recheck Cr again tomorrow. I decreased Cipro dose. would prefer rocephin but pt allergic to PCN. In addition, proceeding with a stent placement may not be advisable as Dr Dubose was unsuccessful earlier in the year. The procedure would expose patient to anesthetic risks with lower potential for a successful stent placement. could alos consider nephrostomy tube but pt is anticoagulated. This may be a situation that we simply manage with ABX and observe. Qualifiers: Hydronephrosis type: unspecified Qualified Code(s): N13.30 - Unspecified hydronephrosis (2) Urine purulent Current Visit: Yes Status: Acute Progress Note Narrative: no acute events overnight. Objective Initial Vital Signs Temp Pulse Resp BP Pulse Ox 98.5 F 81 26 175/82 98 02/16/17 18:51 02/16/17 18:51 02/16/17 18:51 02/16/17 18:51 02/16/17 18:51 - Labs 02/18/17 03:09 02/18/17 03:09 Diabetes panel 02/18/17 Range/Units 03:09 Sodium 135 L (136-145) mEq/L Potassium 4.8 (3.5-5.1) mEq/L Chloride 104 (98-107) mEq/L Carbon Dioxide 25 (23-29) mEq/L BUN 50 H (8-23) mg/dL Creatinine 1.90 H (0.60-1.20) mg/dL Glucose 146 H (70-105) mg/dL Calcium 8.7 (8.6-10.3) mg/dL Calcium panel 02/18/17 Range/Units 03:09 Calcium 8.7 (8.6-10.3) mg/dL Pituitary panel 02/18/17 Range/Units 03:09 Sodium 135 L (136-145) mEq/L Potassium 4.8 (3.5-5.1) mEq/L Chloride 104 (98-107) mEq/L Carbon Dioxide 25 (23-29) mEq/L BUN 50 H (8-23) mg/dL Creatinine 1.90 H (0.60-1.20) mg/dL Glucose 146 H (70-105) mg/dL Calcium 8.7 (8.6-10.3) mg/dL Adrenal panel 02/18/17 Range/Units 03:09 Sodium 135 L (136-145) mEq/L Potassium 4.8 (3.5-5.1) mEq/L Chloride 104 (98-107) mEq/L Carbon Dioxide 25 (23-29) mEq/L BUN 50 H (8-23) mg/dL Creatinine 1.90 H (0.60-1.20) mg/dL Glucose 146 H (70-105) mg/dL Calcium 8.7 (8.6-10.3) mg/dL - VTE Reasons for not Prescribing Prophylaxis: Not indicated-Anticoagulated or INR therapeutic Consult Discharge Plan - Plan Referrals: Danny Rodarte Jr, MD [Primary Care Provider] - 03/01/17 10:00 am
[2017-02-18] MEDS: Budesonide/Formoterol 160/4.5 MDI IH SCH ×2 (07:54→21:42)
[2017-02-18] MEDS: Insulin LISPRO 300 UNITS/3 ML VIAL SQ SCH ×4 (08:10→20:48)
[2017-02-18] MEDS ORDERED: Ondansetron 4 MG/2 ML VIAL IVP ONE (08:48)
[2017-02-18] MEDS: Ondansetron 4 MG/2 ML VIAL IVP PRN (10:08)
[2017-02-18] MEDS: 0.9 % Sodium Chloride 1,000 ML IVC SCH (10:08)
[2017-02-18] MEDS: Isosorbide MONOnitrate (24 HR) 60 MG TAB.ER.24H PO SCH (10:09)
[2017-02-18] MEDS: Cyanocobalamin (B-12) 1,000 MCG TABLET PO SCH (10:09)
[2017-02-18] MEDS: Aspirin 81 MG TAB.CHEW PO SCH (10:09)
[2017-02-18] MEDS: Cholecalciferol (D-3) 1,000 UNIT TABLET PO SCH (10:09)
[2017-02-18] MEDS: Magnesium Oxide 400 MG TABLET PO SCH (10:09)
--- NOTE | 2017-02-18 11:25 | Cardiology Consult Note ---
Date of Encounter: 02/18/17 Time of Encounter: 11:22 Assessment and Plan (1) Chest pain Current Visit: Yes Status: Acute Atypical chest pain with improved EF when compared to 2016 after PCI of the LAD at distal OCASIO anastamosis. Negative cardiac markers and unchanged EKG when compared to past. A NST is reasonable however patient refuses ischemia work up, will recommend continuing medical management for now. High risk LHC for CN due to CLARISSA and no indications at this time. Qualifiers: Chest pain type: chest pain due to myocardial ischemia Ischemic chest pain type: stable angina pectoris Qualified Code(s): I20.8 - Other forms of angina pectoris Discussion w patient/family: The assessment and plan as outlined above was discussed with the patient and/or family members who expressed understanding and agreement. All questions were answered. Thank you for involving us in the care of your patient. Please call with any questions. History of Present Illness Consult date: 02/18/17 Consult reason: Chest pain Chief complaint: chest pain History of present illness: Ms. Veliz is a 77 year old female with extensive hx of CAD (s/p CABG with recetn 2016 PCI to LAD at site of OCASIO anastamosis), presents with atypical chest pain. Chest pain lasts few seconds at a time non exertional without associated sx. EKG with inferolateral ST changes unchanged from previous EKGs. EF 50-55% with mild DD. Currently with CLARISSA and hydronephrosis with possible UTI. Patient refuses cardiac work up for ischemia. Past Med Surg Social Fam HX - Past Medical History Medical history: arthritis, cancer, CHF, COPD, coronary artery disease, DVT, diabetes, hypertension, kidney stones, myocardial infarction, pulmonary embolus , renal disease Psychiatric history: no psych history - Past Surgical History Surgical History: ureteral stent, other - Social History Smoking Status: Never smoker Smokeless Tobacco Status: No Alcohol use: none Drug use: none - Family History Mother Hx Family Cardiac Disorders: Yes Hx Family Neurologic Disorders: Yes (CVA) Medications and Allergies Atenolol [Tenormin] 50 mg PO BID 03/23/15 [History] Cholecalciferol (Vitamin D3) [Vitamin D3] 2,000 unit PO DAILY 03/23/15 [History] Clopidogrel [Plavix] 75 mg PO DAILY 03/23/15 [History] Cyanocobalamin (Vitamin B-12) [Vitamin B-12] 1,000 mcg PO DAILY 03/23/15 [ History] Isosorbide MONOnitrate [Isosorbide Mononitrate ER] 120 mg PO DAILY 03/23/15 [ History] Magnesium Oxide [Magnesium] 400 mg PO BID 03/23/15 [History] Pravastatin Sodium [Pravachol] 40 mg PO DAILY 03/23/15 [History] Warfarin [Coumadin] 2 - 4 mg PO DAILY 03/23/15 [History] HYDROcodone/Acet 5/325 mg [[place] 5-325 mg] 1 tab PO Q6H PRN 09/26/16 [History] Insulin NPH Human Isophane [Novolin N] 25 units SQ QAM 09/26/16 [History] Nitroglycerin 0.4 mg PO Q5M PRN 09/26/16 [History] Insulin NPH Human Isophane [Novolin N] 15 unit SQ QPM 02/17/17 [History] 3 Allergy/AdvReac Type Severity Reaction Status Date / Time Hydromorphone [From Dilaudid] Allergy Severe Anaphylaxis Verified 09/26/16 13:12 diphenhydramine Allergy Intermediate See Verified 09/26/16 13:12 Comments acetaminophen [From Percocet] Allergy Hives Verified 09/26/16 13:12 codeine Allergy Hives Verified 09/26/16 13:12 morphine Allergy Hives Verified 09/26/16 13:12 Oxycodone [From Percocet] Allergy Hives Verified 09/26/16 13:12 Penicillins Allergy See Verified 09/26/16 13:12 Comments pioglitazone [From Actos] Allergy See Verified 09/26/16 13:12 Comments ivp dye Allergy Severe Swelling Uncoded 09/26/16 13:12 of Lip/Tongue/Throat All Systems Review: A 10-system review of systems was performed and is negative for pertinent findings except as documented above in the HPI. Physical Examination Vital Signs, Last 4 Hours Temp Pulse Resp BP Pulse Ox 02/18/17 11:11 97.8 F 60 16 121/68 100 02/18/17 07:38 98.3 F 62 16 128/73 100 General: Conversant, No Apparent Distress HEENT: Atraumatic, Normocephaly, Mucus Membranes Moist Neck: No JVD, Normal carotid pulses Cardiac: Reg Rate and Rhythm, Normal S1 and S2, No Murmur Lungs: Normal Breath Sounds, No Wheeze, Rales, Rhonchi Neuro: Alert and responsive, No focal deficits noted Abdomen: Soft, Non-Tender Skin: No rashes noted on visualized skin Musculoskeletal: No Chest Wall Tenderness Extremities: No Clubbing, No Cyanosis, No Edema, Normal Pulses Results 02/18/17 03:09 02/18/17 03:09 Lab Results 02/18/17 02/18/17 02/18/17 03:09 03:09 03:09 WBC 7.7 Hgb 9.1 L Hct 27.9 L Plt Count 250 INR 1.8 Sodium 135 L Potassium 4.8 Chloride 104 Carbon Dioxide 25 BUN 50 H Creatinine 1.90 H Glucose 146 H Calcium 8.7 Consult Discharge Plan - Plan Referrals: Danny Rodarte Jr, MD [Primary Care Provider] - 03/01/17 10:00 am
[2017-02-18] MEDS: *HR* HYDROcodone/Acet 5/325 mg TABLET PO PRN (12:46)
--- NOTE | 2017-02-18 13:46 | Internal Med Progress Note ---
Date of Encounter: 02/18/17 Time of Encounter: 13:41 - Assessment and plan (1) Hydronephrosis Current Visit: Yes Status: Acute Assessment and plan: hx chronic left hydronephrosis. Urine tea colored, foul, malodorous with thick purulent matter. ABD CT AT least moderate left hydronephrosis and hydroureter without obstructing stone, similar to prior study. CT also showed moderate amount nondependent gas and bladder with wall thickening suspicious for cystitis. Evaluated by urology who did not feel urgent intervention indicated at this time; continue ATB and monitor for now. Rudd catheter placed but removed due to patient discomfort. Continue IV Cipro for now, urine culture pending. Narrow ATB accordingly. Urology following Qualifiers: Hydronephrosis type: unspecified Qualified Code(s): N13.30 - Unspecified hydronephrosis (2) CAD (coronary artery disease) of bypass graft Current Visit: Yes Status: Acute Assessment and plan: hx CABG. Now with left-sided chest pain with radiation to left neck, left shoulder and left axilla. CXR non-acute. Serial troponins negative, EKG without acute ST changes. TTE with EF 50%, mild diastolic dysfunction and no wall motion abnormalities. Refusing stress test. evaluated by Cardiology who agreed with nuclear stress test however patient continues to refuse therefore recommend continuing medical management for now. No indication for LHC. Cont ASA, BB, coumadin, statin Qualifiers: [place] vs. transplanted heart: [place] heart Associated angina: with unspecified angina Qualified Code(s): I25.709 - Atherosclerosis of coronary artery bypass graft(s), unspecified, with unspecified angina pectoris (3) HTN (hypertension) Current Visit: Yes Status: Acute Assessment and plan: per hx. BP controlled. Cont home BP medication. Monitor BP and titrate PRN Qualifiers: Hypertension type: unspecified Qualified Code(s): I10 - Essential (primary ) hypertension (4) CKD (chronic kidney disease) Current Visit: Yes Status: Chronic Assessment and plan: per hx. Renal function initially at baseline however creatinine increased on . Patient reports not eating or drinking much the day prior. Start IV fluids. Avoid nephrotoxic agents as possible. 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 Cont coumadin (6) DVT prophylaxis Current Visit: Yes Status: Acute Assessment and plan: coumadin - Subjective Interval history: Seen and examined at bedside; says she feels a little better today. Still c/o dysuria and burning with urination. Says she had an episode of chest pain early this morning, has since resolved. - Constitutional Vitals: Temp Pulse Resp BP Pulse Ox 97.8 F 60 16 121/68 100 02/18/17 11:11 02/18/17 11:11 02/18/17 11:11 02/18/17 11:11 02/18/17 11:11 General appearance: Present: cooperative, mild distress, A&O X 3, answers questions appropriately - Head Head exam: Present: atraumatic, normocephalic - Eye Eye exam: Present: PERRL, conjuntiva pink, sclera anicteric Pupils: Present: PERRL - Neck Neck exam general surgery: Present: supple, trachea midline. Absent: lymphadenopathy - Respiratory Respiratory exam: Present: CTAB. Absent: accessory muscle use, rales, rhonchi, wheezes - Cardiovascular Cardiovascular exam: Present: RRR, +S1, +S2. Absent: diastolic murmur, gallop, rubs, systolic murmur - GI/Abdominal GI/Abdominal exam: Present: normal bowel sounds, soft, no peritoneal signs. Absent: distended, tenderness - Extremities Exam Extremities exam: Present: warm, radial pulses palpable and symmetrical. Absent : calf tenderness, cyanotic, pedal edema - Neurological Exam Neurological exam: Present: CN II-XII intact, oriented X3, no focal deficits. Absent: pronater drift, facial droop, speech deficit - Skin Skin exam: Present: dry, intact Internal Medicine: Result - Labs CBC & Chem 7: 02/18/17 03:09 02/18/17 03:09 Labs: Short CBC 02/18/17 Range/Units 03:09 WBC 7.7 (4.3-11.1) K/mcL Hgb 9.1 L (11.5-15.4) g/dL Hct 27.9 L (35.3-44.9) % Plt Count 250 (140-400) K/mcL BMP 02/18/17 03:09 Sodium 135 L Potassium 4.8 Chloride 104 Carbon Dioxide 25 BUN 50 H Creatinine 1.90 H Glucose 146 H Calcium 8.7 - ABG Interpretation ABG results: PT/INR, D-dimer PT 19.6 Seconds (9.4-12.1) H 02/18/17 03:09 - Impressions Impressions Abdomen/Pelvis CT 02/17/17 17:30 IMPRESSION: At least moderate left hydronephrosis and hydroureter without obstructing distal ureteral stone, similar to the prior study. The urinary bladder demonstrates a moderate amount of nondependent gas, at least moderate wall thickening and adjacent stranding suspicious for cystitis. D/ / Daphne Ramirez Cha, MD / Daphne Ramirez Cha, MD Interpreting Provider: Daphne Ramirez Cha, MD - VTE Reasons for not Prescribing Prophylaxis: Not indicated-Anticoagulated or INR therapeutic Consult Discharge Plan - Plan Referrals: Danny Rodarte Jr, MD [Primary Care Provider] - 03/01/17 10:00 am
[2017-02-18] MEDS ORDERED: Fluconazole 100 MG TABLET PO ONE (13:48)
[2017-02-18] MEDS ORDERED: *HR* Warfarin 2 MG TABLET PO ONE (18:00)
[2017-02-18] MEDS: Nitroglycerin 0.4 MG TAB.SUBL SL PRN (20:56)
[2017-02-18] MEDS ORDERED: *HR* HYDROcodone/Acet 7.5/325 mg TABLET PO ONE (22:00)
[2017-02-19] MEDS: Nitroglycerin 0.4 MG TAB.SUBL SL PRN ×6 (02:35→20:57)
[2017-02-19] MEDS: 0.9 % Sodium Chloride 1,000 ML IVC SCH ×2 (03:57→10:36)
[2017-02-19 04:45] LABS: Hematocrit 27.4 % (35.3-44.9); Hemoglobin 8.7 g/dL (11.5-15.4); Mean Corpuscular HGB Conc 31.8 g/dL (31.6-35.5); Mean Corpuscular Hemoglobin 31.1 pg (28.0-33.3); Mean Corpuscular Volume 97.9 fL (83.0-100.0); Mean Platelet Volume 9.6 fL (9.4-12.4); Platelet Count 201 K/mcL (140-400); Red Cell Distribution Width 13.5 % (11.5-14.5)
[2017-02-19 04:50] LABS: INR 1.8; Prothrombin Time 19.6 Seconds (9.4-12.1)
[2017-02-19 05:04] LABS: Calcium 8.5 mg/dL (8.6-10.3); Potassium 4.8 mEq/L (3.5-5.1)
[2017-02-19] MEDS: Budesonide/Formoterol 160/4.5 MDI IH SCH ×2 (08:06→22:10)
[2017-02-19] MEDS: Cyanocobalamin (B-12) 1,000 MCG TABLET PO SCH (08:18)
[2017-02-19] MEDS: Insulin LISPRO 300 UNITS/3 ML VIAL SQ SCH ×5 (08:18→21:10)
[2017-02-19] MEDS: Magnesium Oxide 400 MG TABLET PO SCH (08:18)
[2017-02-19] MEDS: Aspirin 81 MG TAB.CHEW PO SCH (08:18)
[2017-02-19] MEDS: Cholecalciferol (D-3) 1,000 UNIT TABLET PO SCH (08:18)
[2017-02-19] MEDS: Isosorbide MONOnitrate (24 HR) 60 MG TAB.ER.24H PO SCH (08:18)
--- NOTE | 2017-02-19 08:44 | Urology Progress Note ---
Date of Encounter: 02/19/17 Time of Encounter: 08:40 - Assessment and Plan (1) Hydronephrosis Current Visit: Yes Status: Chronic Assessment and plan: present for at least the last year. Ct scan shows no change in hydroonephrosis unsuccessful attempt at stent placement in 09/2016 bc of poor visibility and bleeding (see note from Dr Dubose). worsening renal insufficiency is concerning. could consider a 2nd attempt a stent placement if renal function doesnt improve. unfortunately, higher potential for failure bc of previous attempt - need to be cautious exposing her to anesthesia with lower potential for success (2) Urine purulent Current Visit: Yes Status: Acute Assessment and plan: will reattempt to place cath to maximize drainage (3) Acute renal insufficiency Current Visit: Yes Status: Acute Assessment and plan: unknown etiology. stop cipro. place cath. may consider repeat attempt at ureteral stent placement if no improvement (failed attempt in 09/2016). nephrostomy tube would be better but she is anticoagulated. Progress Note Subjective: no new complaints Objective Initial Vital Signs Temp Pulse Resp BP Pulse Ox 98.5 F 81 26 175/82 98 02/16/17 18:51 02/16/17 18:51 02/16/17 18:51 02/16/17 18:51 02/16/17 18:51 - General physical appearance Present: no distress - Labs 02/19/17 04:00 02/19/17 04:00 Diabetes panel 02/19/17 Range/Units 04:00 Sodium 134 L (136-145) mEq/L Potassium 4.8 (3.5-5.1) mEq/L Chloride 105 (98-107) mEq/L Carbon Dioxide 23 (23-29) mEq/L BUN 51 H (8-23) mg/dL Creatinine 2.00 H (0.60-1.20) mg/dL Glucose 242 H (70-105) mg/dL Calcium 8.5 L (8.6-10.3) mg/dL Calcium panel 02/19/17 Range/Units 04:00 Calcium 8.5 L (8.6-10.3) mg/dL Pituitary panel 02/19/17 Range/Units 04:00 Sodium 134 L (136-145) mEq/L Potassium 4.8 (3.5-5.1) mEq/L Chloride 105 (98-107) mEq/L Carbon Dioxide 23 (23-29) mEq/L BUN 51 H (8-23) mg/dL Creatinine 2.00 H (0.60-1.20) mg/dL Glucose 242 H (70-105) mg/dL Calcium 8.5 L (8.6-10.3) mg/dL Adrenal panel 02/19/17 Range/Units 04:00 Sodium 134 L (136-145) mEq/L Potassium 4.8 (3.5-5.1) mEq/L Chloride 105 (98-107) mEq/L Carbon Dioxide 23 (23-29) mEq/L BUN 51 H (8-23) mg/dL Creatinine 2.00 H (0.60-1.20) mg/dL Glucose 242 H (70-105) mg/dL Calcium 8.5 L (8.6-10.3) mg/dL - VTE Reasons for not Prescribing Prophylaxis: Not indicated-Anticoagulated or INR therapeutic Consult Discharge Plan - Plan Referrals: Danny Rodarte Jr, MD [Primary Care Provider] - 03/01/17 10:00 am
--- NOTE | 2017-02-19 10:18 | Internal Med Progress Note ---
Date of Encounter: 02/19/17 Time of Encounter: 10:15 - Assessment and plan (1) Hydronephrosis Current Visit: Yes Status: Chronic Assessment and plan: hx chronic left hydronephrosis. Had unsuccessful attempt at stent placement 2016 due to poor visibility and bleeding. Urine tea colored, foul, malodorous with thick purulent matter. ABD CT with moderate left hydronephrosis and hydroureter without obstructing stone, similar to prior study. CT also showed moderate amount nondependent gas and bladder with wall thickening suspicious for cystitis. Urology considering possible second attempt at stent placement if renal function does not improve however high risk for failure due to previous unsuccessful attempt. UA grossly indicative of UTI, urine culture with enterococcus. Sensitivity pending. Initially treated with Cipro however this was stopped due to worsening renal function. Patient is refusing Rudd catheter. Urology following. Qualifiers: Hydronephrosis type: unspecified Qualified Code(s): N13.30 - Unspecified hydronephrosis (2) UTI (urinary tract infection) due to Enterococcus Current Visit: Yes Status: Acute Assessment and plan: UA grossly indicative of UTI. Urine culture with enterococcus; sensitivity pending. Echo biology reviewed and patient has had multiple UTIs with VRE. Initially treated with Cipro however this was stopped due to worsening renal function. Start Levaquin as most recent urine culture sensitive to Levaquin. Afebrile, no elevated WBC; unclear if true UTI or possible colonization. Cont IV Levaquin. Follow urine culture and narrow accordingly (3) CAD (coronary artery disease) of bypass graft Current Visit: Yes Status: Acute Assessment and plan: hx CABG. Now with left-sided chest pain with radiation to left neck, left shoulder and left axilla. CXR non-acute. Serial troponins negative, EKG without acute ST changes. TTE with EF 50%, mild diastolic dysfunction and no wall motion abnormalities. Refusing stress test. Evaluated by Cardiology who agreed with nuclear stress test however patient continues to refuse therefore recommend continuing medical management for now. At risk for ABDIRAHMAN with LHC due to worsening renal function. Cont ASA, BB, coumadin, statin. Ranexa added. Cont monitor on tele Qualifiers: [place] vs. transplanted heart: [place] heart Associated angina: with unspecified angina Qualified Code(s): I25.709 - Atherosclerosis of coronary artery bypass graft(s), unspecified, with unspecified angina pectoris (4) HTN (hypertension) Current Visit: Yes Status: Acute Assessment and plan: per hx. BP controlled. Cont home BP medication. Monitor BP and titrate PRN Qualifiers: Hypertension type: unspecified Qualified Code(s): I10 - Essential (primary ) hypertension (5) CKD (chronic kidney disease) Current Visit: Yes Status: Chronic Assessment and plan: per hx. Renal function initially at baseline. Now with worsening renal function ; Cr 2, GFR 29. Has chronic hydronephrosis with relatively stable renal function for the last year. Continue IV fluids. Avoid nephrotoxic agents as possible. Monitor repeat renal function, urinary output. Patient is refusing Rudd catheter. 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 Cont coumadin (7) DVT prophylaxis Current Visit: Yes Status: Acute Assessment and plan: coumadin (8) Anemia Current Visit: Yes Status: Chronic Assessment and plan: known hx; baseline Hgb ~ 9 to 10. Hgb slowly dropped to 8.7. Suspect multifactorial with known iron deficiency anemia, renal insufficiency and hemodilution component. No active bleeding. Occult stool pending. Closely monitor hemoglobin with anticoagulation. Add iron supplements. Monitor repeat H&H. Qualifiers: Anemia type: iron deficiency Iron deficiency anemia type: other iron deficiency Qualified Code(s): D50.8 - Other iron deficiency anemias - Subjective Interval history: Seen and examined at bedside. She is complaining of chest pain that is worse with exertion, no shortness of breath. She is also reporting persistent and worsening dysuria and genital pain. She is refusing a Rudd catheter; I discussed the importance of accurate retraining of her urinary output with worsening renal function and she is still refusing. I was able to straight catheter her at bedside with removal of 75 mL's. Patient is very tearful and crying during exam. States she is in pain and cannot take much more. She is declining Rudd catheter as previously noted, still refusing stress test. Discussed option of transferring to [facility] or even [facility] due to high risk stent placement and patient is refusing. Discussed case with Dr. Pineda and no other intervention indicated at this time as patient is refusing care. Cont to encourage cooperation/compliance with care. - Constitutional Vitals: Temp Pulse Resp BP Pulse Ox 98.4 F 66 18 133/76 95 02/19/17 07:50 02/19/17 07:50 02/19/17 07:50 02/19/17 07:50 02/19/17 08:20 General appearance: Present: cooperative, mild distress, A&O X 3, answers questions appropriately - Head Head exam: Present: atraumatic, normocephalic - Eye Eye exam: Present: PERRL, conjuntiva pink, sclera anicteric Pupils: Present: PERRL - Neck Neck exam general surgery: Present: supple, trachea midline. Absent: lymphadenopathy - Respiratory Respiratory exam: Present: CTAB. Absent: accessory muscle use, rales, rhonchi, wheezes - Cardiovascular Cardiovascular exam: Present: RRR, +S1, +S2. Absent: diastolic murmur, gallop, rubs, systolic murmur - GI/Abdominal GI/Abdominal exam: Present: normal bowel sounds, soft, no peritoneal signs. Absent: distended, tenderness - Extremities Exam Extremities exam: Present: warm, radial pulses palpable and symmetrical. Absent : calf tenderness, cyanotic, pedal edema - Neurological Exam Neurological exam: Present: CN II-XII intact, oriented X3, no focal deficits. Absent: pronater drift, facial droop, speech deficit - Skin Skin exam: Present: dry, intact, pallor Internal Medicine: Result - Labs CBC & Chem 7: 02/19/17 04:00 02/19/17 04:00 Labs: Short CBC 02/19/17 Range/Units 04:00 WBC 7.9 (4.3-11.1) K/mcL Hgb 8.7 L (11.5-15.4) g/dL Hct 27.4 L (35.3-44.9) % Plt Count 201 (140-400) K/mcL BMP 02/19/17 04:00 Sodium 134 L Potassium 4.8 Chloride 105 Carbon Dioxide 23 BUN 51 H Creatinine 2.00 H Glucose 242 H Calcium 8.5 L - ABG Interpretation ABG results: PT/INR, D-dimer PT 19.6 Seconds (9.4-12.1) H 02/19/17 04:00 - VTE Reasons for not Prescribing Prophylaxis: Not indicated-Anticoagulated or INR therapeutic Consult Discharge Plan - Plan Referrals: Danny Rodarte Jr, MD [Primary Care Provider] - 03/01/17 10:00 am
[2017-02-19] MEDS: Ranolazine 500 MG TAB.ER.12H PO SCH ×3 (12:12→21:15)
--- NOTE | 2017-02-19 13:34 | Nephrology Consult Note ---
Date of Encounter: 02/19/17 Time of Encounter: 13:32 Assessment and Plan (1) Acute kidney injury superimposed on chronic kidney disease Current Visit: Yes Status: Acute Patient with CLARISSA on CKD Baseline CKD with creatinine around 1.5. Current CLARISSA of unclear etiology, but could be multifactorial prerenal vs/and obstructive given the left sided hydronephrosis/hydroureter (that is chronic). Agree with hydration. Urology following. If no improvement with hydration may need stent placement. Check urine sodium, creatinine and P/C ratio. No acute need for dialysis. Treat Enterococcal UTI as you are doing. Need accurate Is and Os. Avoid nephrotoxins. (2) HTN (hypertension) Current Visit: Yes Status: Acute Adjust antihypertensive medications as needed. Qualifiers: Hypertension type: unspecified Qualified Code(s): I10 - Essential (primary ) hypertension (3) Anemia Current Visit: Yes Status: Chronic Hemoglobin stable. Monitor for bleeding. Qualifiers: Anemia type: iron deficiency Iron deficiency anemia type: other iron deficiency Qualified Code(s): D50.8 - Other iron deficiency anemias (4) Diabetes Current Visit: Yes Status: Chronic Per primary team. 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 Qualifiers: Chest pain type: chest pain due to myocardial ischemia Ischemic chest pain type: stable angina pectoris Qualified Code(s): I20.8 - Other forms of angina pectoris History of Present Illness - Reason for Consult Consult date: 02/19/17 Acute Kidney Injury, Chronic Kidney Disease - Chief Complaint CLARISSA - History of Present Illness Ms. Veliz is a 77 yo woman with a history of CAD who presents with chest pain. [facility] was consulted secondary to worsening renal function. The history was mainly from review of the chart. The patient was a poor historian. She was alert and oriented, but difficult to keep focused on the questions. She was eating and drinking well. 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 Past Med Surg Social Fam HX - Past Medical History Medical history: arthritis, cancer, CHF, COPD, coronary artery disease, DVT, diabetes, hypertension, kidney stones, myocardial infarction, pulmonary embolus , renal disease Psychiatric history: no psych history - Past Surgical History Surgical History: ureteral stent, other - Social History Smoking Status: Never smoker Smokeless Tobacco Status: No Alcohol use: none Drug use: none - Family History Mother Hx Family Cardiac Disorders: Yes Hx Family Neurologic Disorders: Yes (CVA) Medications and Allergies Atenolol [Tenormin] 50 mg PO BID 03/23/15 [History] Cholecalciferol (Vitamin D3) [Vitamin D3] 2,000 unit PO DAILY 03/23/15 [History] Clopidogrel [Plavix] 75 mg PO DAILY 03/23/15 [History] Cyanocobalamin (Vitamin B-12) [Vitamin B-12] 1,000 mcg PO DAILY 03/23/15 [ History] Isosorbide MONOnitrate [Isosorbide Mononitrate ER] 120 mg PO DAILY 03/23/15 [ History] Magnesium Oxide [Magnesium] 400 mg PO BID 03/23/15 [History] Pravastatin Sodium [Pravachol] 40 mg PO DAILY 03/23/15 [History] Warfarin [Coumadin] 2 - 4 mg PO DAILY 03/23/15 [History] HYDROcodone/Acet 5/325 mg [Harvey 5-325 mg] 1 tab PO Q6H PRN 09/26/16 [History] Insulin NPH Human Isophane [Novolin N] 25 units SQ QAM 09/26/16 [History] Nitroglycerin 0.4 mg PO Q5M PRN 09/26/16 [History] Insulin NPH Human Isophane [Novolin N] 15 unit SQ QPM 02/17/17 [History] 3 Allergy/AdvReac Type Severity Reaction Status Date / Time Hydromorphone [From Dilaudid] Allergy Severe Anaphylaxis Verified 09/26/16 13:12 diphenhydramine Allergy Intermediate See Verified 09/26/16 13:12 Comments acetaminophen [From Percocet] Allergy Hives Verified 09/26/16 13:12 codeine Allergy Hives Verified 09/26/16 13:12 morphine Allergy Hives Verified 09/26/16 13:12 Oxycodone [From Percocet] Allergy Hives Verified 09/26/16 13:12 Penicillins Allergy See Verified 09/26/16 13:12 Comments pioglitazone [From Actos] Allergy See Verified 09/26/16 13:12 Comments ivp dye Allergy Severe Swelling Uncoded 09/26/16 13:12 of Lip/Tongue/Throat Review of Systems All Systems: reviewed and no additional remarkable complaints except as stated ( as documented in hpi) Exam - Vital Signs Vital signs: Initial Vital Signs Temp Pulse Resp BP Pulse Ox 98.5 F 81 26 175/82 98 02/16/17 18:51 02/16/17 18:51 02/16/17 18:51 02/16/17 18:51 02/16/17 18:51 Vital Signs - Last 8 Hours Temp Pulse Resp BP Pulse Ox 02/19/17 11:36 98.2 F 60 18 150/73 99 02/19/17 08:20 95 02/19/17 07:50 98.4 F 66 18 133/76 95 Intake and Output 02/18/17 02/19/17 02/19/17 23:59 07:59 15:59 Intake Total 1100 / 1100 100 / 100 920 / 920 Output Total 400 / 400 600 / 600 Balance 700 / 700 -500 / -500 920 / 920 Intake: IV Fluids 1100 / 1100 100 / 100 0.9 % Sodium Chloride 1,000 ML 1000 / 1000 @ 75 mls/hr IVC .[id number] [facility] Rx #:[id number] Cipro Premix 200 MG/100 ML 200 100 / 100 100 / 100 mg In 100 ml @ 100 mls/hr IVPB Q12HR [facility] Rx#:[id number] Oral 920 / 920 Output: Urine 400 / 400 600 / 600 Other: Meal Breakfast Percent of Meal Consumed 90% Weight 72.983 kg Blood Glucose* 191 248 197 Patient Weight 02/19/17 23:59 Weight 72.983 kg - General Appearance General appearance: well-developed, well-nourished EENT: ATNC Neck: supple Respiratory: clear Cardiology: no edema, regular rate, regular rhythm Gastrointestinal: normoactive bowel sounds, no tenderness Integumentary: warm and dry Neurologic: alert and oriented x3 Musculoskeletal: no cyanosis Psychiatric: depressed, cooperative Results - Lab Results 02/19/17 04:00 02/19/17 04:00 Most recent lab results Calcium 8.5 mg/dL (8.6-10.3) L 02/19/17 04:00 Consult Discharge Plan - Plan Referrals: Danny Rodarte Jr, MD [Primary Care Provider] - 03/01/17 10:00 am
[2017-02-19] MEDS ORDERED: *HR* Warfarin 2 MG TABLET PO ONE (18:00)
[2017-02-20] MEDS: Nitroglycerin 0.4 MG TAB.SUBL SL PRN ×2 (00:52→00:59)
[2017-02-20] MEDS ORDERED: Nitroglycerin 1 INCH/GM PACKET TP ONE (01:57)
[2017-02-20] MEDS ORDERED: clonazePAM 0.5 MG TABLET PO ONE (03:11)
[2017-02-20] MEDS: *HR* HYDROcodone/Acet 5/325 mg TABLET PO PRN ×2 (03:49→20:04)
[2017-02-20] MEDS: 0.9 % Sodium Chloride 1,000 ML IVC SCH (04:33)
[2017-02-20 07:31] LABS: Hematocrit 29.1 % (35.3-44.9); Hemoglobin 9.4 g/dL (11.5-15.4); Mean Corpuscular HGB Conc 32.3 g/dL (31.6-35.5); Mean Corpuscular Hemoglobin 31.5 pg (28.0-33.3); Mean Corpuscular Volume 97.7 fL (83.0-100.0); Mean Platelet Volume 9.6 fL (9.4-12.4); Platelet Count 236 K/mcL (140-400); Red Blood Count 2.98 M/mcL (3.82-4.97); Red Cell Distribution Width 13.7 % (11.5-14.5)
[2017-02-20 07:40] LABS: INR 1.8; Prothrombin Time 19.8 Seconds (9.4-12.1)
[2017-02-20] MEDS: Budesonide/Formoterol 160/4.5 MDI IH SCH ×2 (07:52→20:28)
[2017-02-20 07:57] LABS: Calcium 8.7 mg/dL (8.6-10.3); Potassium 4.9 mEq/L (3.5-5.1)
[2017-02-20] MEDS: Insulin LISPRO 300 UNITS/3 ML VIAL SQ SCH ×3 (08:10→18:33)
[2017-02-20] MEDS ORDERED: Chloraseptic Spray 177 ML BOTTLE MM PRN (08:17)
--- NOTE | 2017-02-20 08:28 | Urology Progress Note ---
Date of Encounter: 02/20/17 Time of Encounter: 08:20 - Assessment and Plan (1) Hydronephrosis Current Visit: Yes Status: Chronic (2) Urine purulent Current Visit: Yes Status: Acute (3) Acute renal insufficiency Current Visit: Yes Status: Acute Assessment and plan: Cr improved to 1.88. discussed with Dr Dubose and he agrees that the a repeat attempt at stent placement may again be unsuccessful. will observe for now and continue to follow. Objective Initial Vital Signs Temp Pulse Resp BP Pulse Ox 98.5 F 81 26 175/82 98 02/16/17 18:51 02/16/17 18:51 02/16/17 18:51 02/16/17 18:51 02/16/17 18:51 - Labs 02/20/17 07:12 02/20/17 07:12 Diabetes panel 02/20/17 Range/Units 07:12 Sodium 136 (136-145) mEq/L Potassium 4.9 (3.5-5.1) mEq/L Chloride 106 (98-107) mEq/L Carbon Dioxide 20 L (23-29) mEq/L BUN 49 H (8-23) mg/dL Creatinine 1.88 H (0.60-1.20) mg/dL Glucose 289 H (70-105) mg/dL Calcium 8.7 (8.6-10.3) mg/dL Calcium panel 02/20/17 Range/Units 07:12 Calcium 8.7 (8.6-10.3) mg/dL Pituitary panel 02/20/17 Range/Units 07:12 Sodium 136 (136-145) mEq/L Potassium 4.9 (3.5-5.1) mEq/L Chloride 106 (98-107) mEq/L Carbon Dioxide 20 L (23-29) mEq/L BUN 49 H (8-23) mg/dL Creatinine 1.88 H (0.60-1.20) mg/dL Glucose 289 H (70-105) mg/dL Calcium 8.7 (8.6-10.3) mg/dL Adrenal panel 02/20/17 Range/Units 07:12 Sodium 136 (136-145) mEq/L Potassium 4.9 (3.5-5.1) mEq/L Chloride 106 (98-107) mEq/L Carbon Dioxide 20 L (23-29) mEq/L BUN 49 H (8-23) mg/dL Creatinine 1.88 H (0.60-1.20) mg/dL Glucose 289 H (70-105) mg/dL Calcium 8.7 (8.6-10.3) mg/dL - VTE Reasons for not Prescribing Prophylaxis: Not indicated-Anticoagulated or INR therapeutic Consult Discharge Plan - Plan Referrals: Danny Rodarte Jr, MD [Primary Care Provider] - 03/01/17 10:00 am
[2017-02-20] MEDS ORDERED: *HR* LORazepam 2 MG/ML VIAL IVP ONE (08:40)
[2017-02-20] MEDS: Isosorbide MONOnitrate (24 HR) 60 MG TAB.ER.24H PO SCH (08:59)
[2017-02-20] MEDS: Magnesium Oxide 400 MG TABLET PO SCH (08:59)
[2017-02-20] MEDS: Cyanocobalamin (B-12) 1,000 MCG TABLET PO SCH (09:00)
[2017-02-20] MEDS: Cholecalciferol (D-3) 1,000 UNIT TABLET PO SCH (09:00)
[2017-02-20] MEDS: Ranolazine 500 MG TAB.ER.12H PO SCH (09:00)
[2017-02-20] MEDS ORDERED: Levofloxacin 750 MG/150 ML 750 MG/150 ML BAG IVPB SCH (09:00)
[2017-02-20] MEDS: Ondansetron 4 MG/2 ML VIAL IVP PRN ×2 (09:05→18:59)
[2017-02-20 10:18] LABS: % Iron Saturation 14 % (15-50); Iron 54 mcg/dL (50-170); Transferrin 270 mg/dL (203-362)
[2017-02-20] MEDS ORDERED: GI Cocktail 40 ML EACH PO ONE (11:50)
--- NOTE | 2017-02-20 11:56 | Gastroenterology Consult Note ---
<Darrell Silvaanival Lomas - Last Filed: 02/20/17 11:52> Date of Encounter: 02/20/17 Time of Encounter: 10:50 - Assessment and plan (1) Anemia Current Visit: Yes Status: Chronic Assessment and plan: 77 year old female with multiple comorbid conditions including CKD and CAD. She is on plavix and asa. She presents with chest pain. Troponins negative and EKG unchanged per cardiology notes. She refused workup for ischemia. She is also refusing EGD at this time. She has a history of anemia and iron deficiency. Will check iron levels and monitor H&H. Discussed with pt and son the need for endoscopic workup they both verbalize understanding but the patient refuses. Qualifiers: Anemia type: iron deficiency Iron deficiency anemia type: other iron deficiency Qualified Code(s): D50.8 - Other iron deficiency anemias (2) CKD (chronic kidney disease) Current Visit: Yes Status: Chronic Assessment and plan: Pt is being followed by urology and nephrology. May have anemia of chronic disease due to chronic kidney disease. Qualifiers: Chronic kidney disease stage: stage 3 (moderate) Qualified Code(s): N18.3 - Chronic kidney disease, stage 3 (moderate) (3) Chest pain Current Visit: Yes Status: Acute Assessment and plan: Pt continues to complain of chest pain, troponins were normal, EKG were unchanged, she refuses further workup for ischemia. Will start protonix and give one time does of GI coctail, she also refuses EGD at this time. Qualifiers: Chest pain type: other chest pain Qualified Code(s): R07.89 - Other chest pain; R07.8 - Other chest pain - Time Spent With Patient Total time spent is greater than 50% in coordination of care (as documented) at patient's floor/unit and/or counseling patient: GI History of Present Illness - Data of Consult Patient: new to practice Consult date: 02/20/17 Requesting Physician: Jia Bach CNP - Consult Narrative Reason for consult: anemia History of present illness: Ms. Veliz is a 77 year old female with a PMH of CKD stage III, CAD, COPD, DM, CHF, arthritis, kidney stones, MS, prior PE and prior CABG. She presented with a one-week history of left-sided chest pain with radiation to the left shoulder and left jaw and left axilla. She also complained of shortness of breath and lightheadedness. She denies any diaphoresis or nausea, fevers, chills. She is currently complaining of generalized abdominal tenderness, nausea and vomiting and chest pain, back pain and GE reflux. Initial troponin in the emergency department was 0.03, max troponin 0.10. Pt refused cardiac workup for ischemia. She is on plavix and asa. Hgb dropped to 8.7 on 02/20/16, is back up to 9.4. Stool for occult blood was positive. Labs from the past year reviewed and pt normal is 8-10. Pt labs showed iron deficiency 03/25 and she is on po ferrous sulfate. CT abdomen showed no acute GI findings, and hydronephrosis. Chest x-ray shows mild pulmonary edema. When asked if she had ever had a colonoscopy or EGD she states "they told me to never have one because they cause blood clots". Colonoscopy: denies EGD: denies NSAIDS/ASA: asa Anticoagulants: plavix Past Med Surg Social Fam HX - Past Medical History Medical history: arthritis, cancer, CHF, COPD, coronary artery disease, DVT, diabetes, hypertension, kidney stones, myocardial infarction, pulmonary embolus , renal disease Psychiatric history: no psych history - Past Surgical History Surgical History: ureteral stent, other - Social History Smoking Status: Never smoker Smokeless Tobacco Status: No Alcohol use: none Drug use: none - Family History Mother Hx Family Cardiac Disorders: Yes Hx Family Neurologic Disorders: Yes (CVA) Review of Systems: GI: as per ANVIK GENERAL: denies fever, has some chills EYES: denies yellow discoloration ENT: denies pain with swallowing or difficulty swallowing CARDIO: see HPI RESP: Shortness of breath with exertion : denies change in color of urine NEURO: weakness HEME: Denies any bruising MS: chronic back and joint pain DERM: denies rash or itching PSYCH: history of anxiety and depression - Constitutional Vitals: Temp Pulse Resp BP Pulse Ox 97.5 F L 79 16 124/85 95 02/20/17 11:00 02/20/17 11:00 02/20/17 11:00 02/20/17 11:00 02/20/17 11:00 Exam: CONSTITUTIONAL:~alert, mild distress.~HEAD:~normocephalic.~EYES:~no jaundice.~ NECK:~no obvious swelling.~HEART:~regular rate and rhythm, no murmurs.~LUNGS:~ fair air entry with bibasilar crackles.~ABDOMEN:~non distended, soft, diffuse tenderness, no masses palpable, no organomegaly.~RECTAL EXAM:~Deferred.~ EXTREMITIES:~no clubbing, cyanosis or edema.~SKIN:~no stigmata of chronic liver disease.~NEUROLOGIC:~no obvious focal defect.~~~~ Results - Labs CBC & Chem 7: 02/20/17 07:12 02/20/17 07:12 Labs: Last Result Calcium 8.7 mg/dL (8.6-10.3) 02/20/17 07:12 Iron 54 mcg/dL (50-170) 02/20/17 09:52 % Saturation 14 % (15-50) L 02/20/17 09:52 Transferrin 270 mg/dL (203-362) 02/20/17 09:52 Ferritin 62 ng/ml (10-120) 02/20/17 09:52 Troponin I 0.10 ng/mL (< 0.04) H* 02/20/17 07:12 Triglycerides 126 mg/dL (< 150) 02/17/17 00:29 Stool Occult Blood Positive (Negative) A 02/18/17 17:45 Entire Visit Hgb 9.4 g/dL (11.5-15.4) L 02/20/17 07:12 Hct 29.1 % (35.3-44.9) L 02/20/17 07:12 PT 19.8 Seconds (9.4-12.1) H 02/20/17 07:12 Ferritin 62 ng/ml (10-120) 02/20/17 09:52 - ABG ABG results: PT/INR, D-dimer PT 19.8 Seconds (9.4-12.1) H 02/20/17 07:12 Consult Discharge Plan - Plan Referrals: Danny Rodarte Jr, MD [Primary Care Provider] - 03/01/17 10:00 am <Louis Tejada - Last Filed: 02/20/17 17:43> Date of Encounter: 02/20/17 Time of Encounter: 17:20 - Time Spent With Patient Total time spent is greater than 50% in coordination of care (as documented) at patient's floor/unit and/or counseling patient: GI History of Present Illness - Data of Consult Requesting Physician: Jia Bach CNP - Consult Narrative History of present illness: Ms. Veliz is a 77 year old female - Constitutional Vitals: Temp Pulse Resp BP Pulse Ox 97.8 F 79 16 95/67 94 02/20/17 16:00 02/20/17 16:00 02/20/17 16:00 02/20/17 16:00 02/20/17 16:00 Results - Labs CBC & Chem 7: 02/20/17 07:12 02/20/17 07:12 Labs: Last Result Calcium 8.7 mg/dL (8.6-10.3) 02/20/17 07:12 Iron 54 mcg/dL (50-170) 02/20/17 09:52 % Saturation 14 % (15-50) L 02/20/17 09:52 Transferrin 270 mg/dL (203-362) 02/20/17 09:52 Ferritin 62 ng/ml (10-120) 02/20/17 09:52 Troponin I 4.71 ng/mL (< 0.04) H* 02/20/17 13:24 Triglycerides 126 mg/dL (< 150) 02/17/17 00:29 Stool Occult Blood Positive (Negative) A 02/18/17 17:45 Entire Visit Hgb 9.4 g/dL (11.5-15.4) L 02/20/17 07:12 Hct 29.1 % (35.3-44.9) L 02/20/17 07:12 PT 19.8 Seconds (9.4-12.1) H 02/20/17 07:12 Ferritin 62 ng/ml (10-120) 02/20/17 09:52 - ABG ABG results: PT/INR, D-dimer PT 19.8 Seconds (9.4-12.1) H 02/20/17 07:12 - Attending Attestation I examined this patient and my medical decision-making was reviewed with the Resident Physician. I agree with the documented findings, disposition and treatment plan as described except to the extent set forth below. Patient with acute elevation in troponin and is going for urgent heart catheter. Earlier she has been refusing GI workup for anemia. If she changes her mind in the future then we will be happy to proceed with a workup.
[2017-02-20] MEDS ORDERED: Pantoprazole 40 MG VIAL IVP SCH (12:00)
--- NOTE | 2017-02-20 13:43 | Electrocardiograph Report ---
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
[2017-02-20] MEDS: Sucralfate 1 GM TABLET PO SCH ×2 (14:20→18:33)
--- NOTE | 2017-02-20 15:37 | Infectious Disease Consult ---
Date of Encounter: 02/20/17 Time of Encounter: 15:36 Assessment and Plan (1) Asymptomatic bacteriuria Status: Acute Assessment and plan: Currently patient not having any urinary symptoms as per patient and nursing staff. Urine analysis which was not adequately obtained because it has a lot of squamous epithelial cells grew enterococcus species with susceptibility pending. Previously patient has had ampicillin sensitive enterococcus and has had VRE in the past. But since the patient has no surgical criteria and no symptoms we will wait and see what kind of enterococcus she has and will discuss accordingly. At this point I don't recommend antibiotics for the asymptomatic bacteriuria. If the patient starts having serous criteria or fever recommend repeating culture and getting blood cultures 2 and starting empiric antibiotics. What complicates matter even more, as effectively the patient mentions penicillin as allergies with hives. I'm not sure I can give her ampicillin if the enterococcus is ampicillin sensitive. (2) CHF exacerbation Status: Acute Qualifiers: Congestive heart failure type: unspecified Qualified Code(s): I50.9 - Heart failure, unspecified (3) COPD (chronic obstructive pulmonary disease) Status: Chronic Qualifiers: COPD type: emphysema Emphysema type: unspecified Qualified Code(s): J43.9 - Emphysema, unspecified (4) NSTEMI (non-ST elevated myocardial infarction) Status: Acute (5) Chest pain Status: Acute Qualifiers: Chest pain type: other chest pain Qualified Code(s): R07.89 - Other chest pain; R07.8 - Other chest pain (6) Acute kidney injury superimposed on chronic kidney disease Status: Acute Infectious Disease HPI - Data of Consult Patient: new to practice Consult date: 02/20/17 Requesting Physician: Jia Bach CNP Primary Care Provider: Danny Rodarte Jr, MD - Consult Narrative Reason for consult: UTI History of present illness: Ms. Veliz is a 77 year old female Patient is 77-year-old woman who was admitted to [facility] on 02/16/17 with chest pain and shortness of breath. We are consulted on 02/20/2017 with uric tract infection. Since admission, patient has been afebrile. Heart rate has been within normal limits. WBC on admission was 7.7. Patient was in acute on chronic injury. A UA was obtained which showed trace ketones negative nitrites large leukocyte esterase RBCs too numerous to count squamous epithelial cells many and WBC too numerous to count. Cultures grew enterococcus species with final susceptibility pending. We were asked to evaluate the patient and make further recommendations. On reviewing previous cultures patient did have Enterococcus faecalis in the past that was susceptible to ampicillin back in February 2016. And there was a culture back in July, April and March of 2015 that revealed VRE. Interesting to note that the patient did have a urine culture in December, November, October and May 2016 all of which were no growth. On questioning, patient apparently does have urinary retention due to hydronephrosis. No dysuria no she no dribbling. Patient clinically is doing worse and she hasn't only troponin and being evaluated right now by Dr. Aranda from cardiology for possible catheter. I also spoke with the nurse practitioner the care of the patient and spoke with nephrology who is in the case. CC: Jia Bach, CARIN Past Med Surg Social Fam HX - Past Medical History Medical history: arthritis, cancer, CHF, COPD, coronary artery disease, DVT, diabetes, hypertension, kidney stones, myocardial infarction, pulmonary embolus , renal disease Psychiatric history: no psych history - Past Surgical History Surgical History: ureteral stent, other - Social History Smoking Status: Never smoker Smokeless Tobacco Status: No Alcohol use: none Drug use: none - Family History Mother Hx Family Cardiac Disorders: Yes Hx Family Neurologic Disorders: Yes (CVA) Infectious Disease-CN:Meds Atenolol [Tenormin] 50 mg PO BID 03/23/15 [History] Cholecalciferol (Vitamin D3) [Vitamin D3] 2,000 unit PO DAILY 03/23/15 [History] Clopidogrel [Plavix] 75 mg PO DAILY 03/23/15 [History] Cyanocobalamin (Vitamin B-12) [Vitamin B-12] 1,000 mcg PO DAILY 03/23/15 [ History] Isosorbide MONOnitrate [Isosorbide Mononitrate ER] 120 mg PO DAILY 03/23/15 [ History] Magnesium Oxide [Magnesium] 400 mg PO BID 03/23/15 [History] Pravastatin Sodium [Pravachol] 40 mg PO DAILY 03/23/15 [History] Warfarin [Coumadin] 2 - 4 mg PO DAILY 03/23/15 [History] HYDROcodone/Acet 5/325 mg [[place] 5-325 mg] 1 tab PO Q6H PRN 09/26/16 [History] Insulin NPH Human Isophane [Novolin N] 25 units SQ QAM 09/26/16 [History] Nitroglycerin 0.4 mg PO Q5M PRN 09/26/16 [History] Insulin NPH Human Isophane [Novolin N] 15 unit SQ QPM 02/17/17 [History] 3 Allergy/AdvReac Type Severity Reaction Status Date / Time Hydromorphone [From Dilaudid] Allergy Severe Anaphylaxis Verified 09/26/16 13:12 diphenhydramine Allergy Intermediate See Verified 09/26/16 13:12 Comments acetaminophen [From Percocet] Allergy Hives Verified 09/26/16 13:12 codeine Allergy Hives Verified 09/26/16 13:12 morphine Allergy Hives Verified 09/26/16 13:12 Oxycodone [From Percocet] Allergy Hives Verified 09/26/16 13:12 Penicillins Allergy See Verified 09/26/16 13:12 Comments pioglitazone [From Actos] Allergy See Verified 09/26/16 13:12 Comments ivp dye Allergy Severe Swelling Uncoded 09/26/16 13:12 of Lip/Tongue/Throat Review of systems: Positive for chest tightness and shortness of breath and agitation. Rest of the review of systems unremarkable. Exam - Constitutional Vitals: Temp Pulse Resp BP Pulse Ox 97.5 F L 79 16 124/85 95 02/20/17 11:00 02/20/17 11:00 02/20/17 11:00 02/20/17 11:00 02/20/17 11:00 General appearance: disheveled, mild distress - Head Head exam: Present: atraumatic, normocephalic - Respiratory Respiratory exam: Present: CTAB. Absent: rhonchi, wheezes - Cardiovascular Cardiovascular exam: Present: +S1, +S2 - GI/Abdominal GI/Abdominal exam: Present: normal bowel sounds, soft. Absent: tenderness - Extremities Exam Extremities exam: Present: full ROM Additional comments: Adequate perfusion. - Neurological Exam Neurological exam: Present: alert, oriented X3 Infectious Disease CN: Results - Labs CBC & Chem 7: 02/20/17 07:12 02/20/17 07:12 Cultures: Cultures 02/17/17 12:30 Urine Culture - Preliminary Urine,Catheterized Enterococcus species Serology: Serology 02/18/17 02/17/17 Range/Units 17:45 12:30 Ur Specimen Adequacy See below A Urine Color [place] (Yellow) Urine Clarity Turbid A (Clear) Urine pH 7.0 (5.0-8.0) pH Units Ur Specific [place] 1.019 (1.010-1.025) Urine Protein >=300 H (Neg-Trace) mg/dL Urine Glucose (UA) Normal (Normal) mg/dL Urine Ketones Trace H (Negative) mg/dL Urine Blood Large H (Negative) Urine Nitrite Negative (Negative) Urine Bilirubin Negative (Negative) Urine Urobilinogen Normal (Normal) mg/dL Ur Leukocyte Esterase Large H (Negative) Urine Microscopic RBC TNTC H (0-3) per hpf Urine Microscopic WBC TNTC H (0-3) per hpf Ur Squamous Epith Cells Many H (None-Few) per lpf Urine Bacteria None Seen (None-Few) per hpf Ur Culture Indicated? NO. (NO) Stool Occult Blood Positive A (Negative) - VTE Reasons for not Prescribing Prophylaxis: Not indicated-Anticoagulated or INR therapeutic Consult Discharge Plan - Plan Referrals: Danny Rodarte Jr, MD [Primary Care Provider] - 03/01/17 10:00 am
--- NOTE | 2017-02-20 15:55 | Nephrology Progress Note ---
Date of Encounter: 02/20/17 Time of Encounter: 15:54 - Assessment and Plan (1) Acute kidney injury superimposed on chronic kidney disease Current Visit: Yes Status: Acute Renal function is mildly better. Still may need ureteral stent, but this may be complicated by renal response to possible contrast today. Patient has refused ureteral stent in the past. (2) HTN (hypertension) Current Visit: Yes Status: Acute Patient's blood pressure is decreasing. Concerning for cardiogenic shock. Patient being transferred to higher level of care. Qualifiers: Hypertension type: unspecified Qualified Code(s): I10 - Essential (primary ) hypertension (3) Anemia Current Visit: Yes Status: Chronic iron deficiency anemia. Recommend type and cross and she may need a transfusion. Monitor for bleeding. Qualifiers: Anemia type: iron deficiency Iron deficiency anemia type: other iron deficiency Qualified Code(s): D50.8 - Other iron deficiency anemias (4) Diabetes Current Visit: Yes Status: Chronic Qualifiers: Diabetes mellitus type: type 2 Diabetes mellitus complication status: with circulatory complication Diabetes mellitus complication detail: with other circulatory complications Qualified Code(s): E11.59 - Type 2 diabetes mellitus with other circulatory complications (5) Metabolic acidosis Current Visit: Yes Status: Acute Will add intravenous bicarbonate. (6) NSTEMI (non-ST elevated myocardial infarction) Current Visit: No Status: Acute Patient with ACS. Rising troponin and ongoing chest pain. Spoke to the patient with Dr. Aranda and CARIN Capellan regarding the patient' s wishes regarding management and goals of care. After a prolonged conversation where the patient went back and forth about aggressive care she ultimately consented to undergoing a cardiac cath. Dr. Aranda will discuss with the son and proceed with a cardiac cath possibly today. 31 minutes with greater than 1/2 of that spent in coordination of care and or counseling. (7) UTI (urinary tract infection) Current Visit: Yes Status: Acute ID consulted. Patient on antibiotics. Qualifiers: Qualified Code(s): N39.0 - Urinary tract infection, site not specified; R31.9 - Hematuria, unspecified; R31.9 - Hematuria, unspecified Subjective Principal diagnosis: CLARISSA on cKD Interval history: Patient seen. She initially was unsure about work-up of her ME, but then consented to a heart cath, but apparently later changed her mind. Objective - Vital Signs Vital signs: Vital Signs Temp Pulse Resp BP Pulse Ox 02/20/17 11:00 97.5 F L 79 16 124/85 95 02/20/17 08:04 99 02/20/17 07:21 97.5 F L 80 16 135/84 99 02/20/17 03:05 97.9 F 80 16 149/88 99 02/19/17 23:12 97.9 F 76 16 127/73 100 02/19/17 20:21 98.4 F 72 16 144/74 97 Intake and Output 02/19/17 02/20/17 02/20/17 23:59 07:59 15:59 Intake Total 1000 / 1000 0 / 0 Output Total 0 / 0 Balance 1000 / 1000 0 / 0 Intake: IV Fluids 1000 / 1000 0.9 % Sodium Chloride 1,000 ML 1000 / 1000 @ 75 mls/hr IVC .[id number] [facility] Rx #:[id number] Oral 0 / 0 Output: Urine 0 / 0 Other: Blood Glucose* 206 282 243 - General Appearance General appearance: Present: well-developed, well-nourished, moderate distress Exam: pale sitting in bed holding her chest. Cardiology: Present: regular rate Integumentary: Present: warm and dry Neurologic: Present: alert and oriented x3 Musculoskeletal: Present: no cyanosis Psychiatric: Present: agitated - Lab 02/20/17 22:14 02/20/17 07:12 Most recent lab results Calcium 8.7 mg/dL (8.6-10.3) 02/20/17 07:12 - VTE Reasons for not Prescribing Prophylaxis: Not indicated-Anticoagulated or INR therapeutic Consult Discharge Plan - Plan Referrals: Danny Rodarte Jr, MD [Primary Care Provider] - 03/01/17 10:00 am
--- NOTE | 2017-02-20 16:29 | Cardiology Progress Note ---
Date of Encounter: 02/20/17 Time of Encounter: 16:25 Assessment and Plan Discussion w patient/family: [place] [employer] would not allow entry of assessment and plan in typical location, so entered here: Impressions: 1. NSTEMI 2. Known history of CAD, prior CABG/PCI. 3. Abnormal ECG, suggestive of ischemia. 4. UTI 5. Hydronephrosis 6. A/CKD 7. Anemia, appears somewhat chronic 8. History of DVTs on Coumadin Recommendations: 1. Start aspirin. Continue Plavix, statin, BB, Ranexa. 2. Stop Imdur and NTG patch (on per nursing), start NTG drip as BP tolerates. 3. Hold coumadin for now, current INR 1.8. Will start heparin drip without bolus. Monitor H/H. 4. R/B/A to [facility] discussed given persistent symptoms despite above therapy, increasing troponin, and abnormal ECG. Patient wishes to proceed. Risks of contrast nephropathy and other potential reviewed. Patient wishes to proceed. 5. Discussed with interventional cardiology, who is reviewing chart for possible procedure. 5. Repeat limited TTE. Thanks, Harrison Aranda DO, [facility] The assessment and plan as outlined above was discussed with the patient and/or family members who expressed understanding and agreement. All questions were answered. Thank you for involving us in the care of your patient. Please call with any questions. Subjective Principal diagnosis: CLARISSA on cKD Interval history: Called by Effie Bach for re-evaluation of Ms. Veliz. Currently being treated for UTI, hydronephrosis, A/CKD, chronic anemia/ hemmocult positive. Per reports, patient hast not been agreeable to some of the medical recommendations made. Called to see patient regarding an elevated Tn measurement - 4.71. Repeat ECG reviewed - demonstrates pronounced ST depression in the precordial and inferior leads. BP lower than previous, now 90s systolic. Patient reports she had chest pain last evening and today. Currently holding chest, reporting chest discomfort. Appears chronically ill. Objective Vital Signs, Last 4 Hours Temp Pulse Resp BP Pulse Ox 02/20/17 16:00 97.8 F 79 16 95/67 94 General: Other (Chronically ill appearing) HEENT: Atraumatic, Normocephaly, Mucus Membranes Moist, Other Neck: No JVD Cardiac: Other (Distant, difficult to appreciate rhythm/murmurs) Lungs: Other (Shallow,) Neuro: Alert and responsive, Other (Poor historian) Abdomen: Soft, Non-Tender Skin: No rashes noted on visualized skin Musculoskeletal: No Chest Wall Tenderness Extremities: No Clubbing, No Cyanosis, No Edema Results 02/20/17 07:12 02/20/17 07:12 Lab Results 02/20/17 02/20/17 02/20/17 07:12 07:12 07:12 WBC 10.5 Hgb 9.4 L Hct 29.1 L Plt Count 236 INR 1.8 Sodium 136 Potassium 4.9 Chloride 106 Carbon Dioxide 20 L BUN 49 H Creatinine 1.88 H Glucose 289 H Calcium 8.7 Troponin I 02/20/17 02/20/17 07:12 13:24 WBC Hgb Hct Plt Count INR Sodium Potassium Chloride Carbon Dioxide BUN Creatinine Glucose Calcium Troponin I 0.10 H* 4.71 H* - Imaging and Cardiology Chest Xray: report reviewed Echo: report reviewed - EKG Interpretation EKG results cardiology: personally reviewed - VTE Reasons for not Prescribing Prophylaxis: Not indicated-Anticoagulated or INR therapeutic Consult Discharge Plan - Plan Referrals: Danny Rodarte Jr, MD [Primary Care Provider] - 03/01/17 10:00 am
[2017-02-20] MEDS ORDERED: Sodium Bicarbonate 75 MEQ in 0.45 % Sodium Chloride 1,000 ML IVC SCH (16:30)
[2017-02-20] MEDS ORDERED: Aspirin 81 MG TAB.CHEW PO SCH (17:00)
[2017-02-20] MEDS ORDERED: Heparin 25,000 UNIT/500 ML D5W 25,000 UNIT/500 ML BAG IVC SCH (17:00)
[2017-02-20] MEDS ORDERED: Nitroglycerin 25 MG/250 ML INFUS..BTL IVC SCH (17:00)
[2017-02-20] MEDS ORDERED: *HR* Heparin 5,000 UNIT/ML VIAL IVP PRN ×2 (17:11)
[2017-02-20] MEDS ORDERED: *HR* Heparin 10,000 UNIT/10 ML VIAL ONE (17:16)
[2017-02-20] MEDS ORDERED: Nitroglycerin 1,000 MCG/10 ML VIAL IV ONE (17:16)
[2017-02-20] MEDS ORDERED: Heparin 1,000 UNITS/500 mL 500 ML ONE (17:16)
[2017-02-20] MEDS ORDERED: 0.9 % Sodium Chloride 1,000 ML ONE ×2 (17:16→17:56)
--- NOTE | 2017-02-20 17:30 | Event Note ---
Date of Encounter: 02/20/17 Time of Encounter: 17:25 Patient re-evaluated, continues to complain of chest discomfort while holding her chest. Again discussed the R/B/A to a LH. She understands the risks of the procedure, including infection, bleeding, damage to arteries, heart attack, embolic events such as strokes, worsening kidney function possibly requiring HD, and . Patient agreeable and wishes to proceed. Willy, patient's son contacted, who supports [place]'s decision to proceed. Further recommendations, including medication adjustments to be made pending results of LHC. All questions answered.
[2017-02-20] MEDS ORDERED: methylPREDNISolone 125 MG/2 ML VIAL IVP ONE (17:43)
[2017-02-20] MEDS ORDERED: *HR* Warfarin 3 MG TABLET PO ONE (18:00)
[2017-02-20 18:04] LABS: Basophils % 0.2 %; Eosinophils % 0.1 %; Hemoglobin 8.8 g/dL (11.5-15.4); Immature Granulocytes % 0.5 % (0-4); Lymphocytes # 1.9 K/mcL (0.6-4.6); Mean Corpuscular HGB Conc 31.4 g/dL (31.6-35.5); Mean Corpuscular Hemoglobin 31.4 pg (28.0-33.3); Mean Platelet Volume 9.5 fL (9.4-12.4); Monocytes # 0.6 K/mcL (0.0-1.3); Monocytes % 4.9 %; Platelet Count 216 K/mcL (140-400); Red Cell Distribution Width 13.8 % (11.5-14.5); Segmented Neutrophils % 79.3 %
[2017-02-20] MEDS ORDERED: *HR* Morphine 2 MG/ML SYRINGE IVP ONE (18:38)
[2017-02-20] MEDS ORDERED: *HR* FentaNYL (PF) 100 MCG/2 ML VIAL ONE (18:40)
[2017-02-20] MEDS ORDERED: Ondansetron 4 MG/2 ML VIAL ONE (18:40)
[2017-02-20] MEDS ORDERED: *HR* FentaNYL (PF) 100 MCG/2 ML VIAL IVP ONE (18:41)
--- NOTE | 2017-02-20 18:44 | Internal Med Progress Note ---
Date of Encounter: 02/20/17 Time of Encounter: 08:30 - Assessment and plan (1) NSTEMI (non-ST elevated myocardial infarction) Current Visit: Yes Status: Acute Assessment and plan: Patient with intermittent substernal chest pain throughout the day, patient denies radiation. Nausea and vomiting early this morning. Troponin was drawn overnight, elevated 0.10. Subsequent troponins with elevation at 4.71, 15.26. Repeat EKG revealed sinus rhythm with nonspecific ST changes. Patient appears chronically ill and pale, clutching mid chest. Patient has extensive history of CAD with CABG and recent PCI to LAD at the site of OCASIO and anastamosis. To this point, patient had been refusing stress test due to intense chest pain with the last stress test and hives after her last stress test. Risks and benefits were discussed with patient and son, still, patient refused to have the testing done. Patient been evaluated previously by cardiology on February 18 , and due to high risk LHC due to CLARISSA, there were no indications at that time and cardiology signed off. Cardiology was reconsulted today after elevation in troponin to 4.71. Patient was agreeable to C this evening when risks of not having one were presented to her, however due to her reported anaphylaxis with IVP dye, LHC was put on hold. Patient has been hypotensive this evening. She was given a 250 mL bolus of 0.9 normal saline. Per cardiology notes it is recommended that she start aspirin, continue Plavix, statin, beta maria d and Ranexa. Imdur and nitroglycerin patches have been stopped. Nitroglycerin drip will be started as a blood pressure tolerates. Hold Coumadin for now, current INR is 1.8. Start heparin drip without a bolus and monitor H&H every 6 hours. As stated again in the cardiology note, risks and benefits to LHC were discussed and patient wishes to proceed. VQ scan was ordered to rule out PE due to patient's history of DVTs, chest x- ray was ordered, as well as a stat echocardiogram. Dr. Couch was with patient was going to review echocardiogram. Patient was transferred to [address] [place] [address]. Continue telemetry Heparin drip without bolus Continue to monitor H&H Nitroglycerin drip as blood pressure tolerates. Another troponin is ordered for 2300. (2) CKD (chronic kidney disease) Current Visit: Yes Status: Chronic Assessment and plan: Chronic. The patient presented at admission with renal function at baseline. Renal function has been worsening and improving throughout visit. Today creatinine is 1.88 and GFR is 26, which is slightly improving. She has been followed by nephrology, I appreciate his consultation and recommendations. Patient also diagnosed with hydronephrosis with unsuccessful stent placement in the past. Was suggested earlier in the week the patient be transferred to [facility], patient also refused that. We will avoid nephrotoxins as much as possible. Patient may have [facility] tonight which may significantly impact renal function. Continue IV fluid 0.9 normal saline hydration. Continue to monitor labs and vital signs. Qualifiers: Chronic kidney disease stage: stage 3 (moderate) Qualified Code(s): N18.3 - Chronic kidney disease, stage 3 (moderate) (3) Anemia Current Visit: Yes Status: Chronic Assessment and plan: Patient with chronic anemia. Patient with anemia of chronic disease, as well as known iron deficiency anemia. Percent saturation is 14. Patient has been started on iron supplementation here. Hemoglobin appears to be a bit patient's baseline today. 9.4 this morning, 8.8 at almost 1800 tonight. We will continue to trend this overnight. Hemoglobin is more normally in the ninth 10 range. Patient had a positive stool occult blood. She was evaluated by GI today. Patient refused EGD. Early this morning when I spoke with patient's son, son Saying she was having too much pain and widely we want to keep doing test that would cause her more pain. Explained the patient could potentially have a bleed in her stomach and that we would need to evaluate it with a scope. Again both patient and son declined further discussion regarding any testing that could potentially cause the patient any pain. Continue to monitor H&H. I appreciate GI consultation and recommendation. After patient is no longer acutely ill with NSTEMI, may reconsult GI. Monitor H&H every 6 hours. Patient is going to be on a heparin drip for AL, continue to monitor. Patient currently has no signs of bleeding. Qualifiers: Anemia type: iron deficiency Iron deficiency anemia type: other iron deficiency Qualified Code(s): D50.8 - Other iron deficiency anemias (4) COPD (chronic obstructive pulmonary disease) Current Visit: Yes Status: Chronic Assessment and plan: Chronic. No apparent exacerbation at this time. Continue home inhalers. Qualifiers: COPD type: emphysema Emphysema type: unspecified Qualified Code(s): J43.9 - Emphysema, unspecified (5) Diabetes Current Visit: Yes Status: Chronic Assessment and plan: Patient with poorly controlled diabetes. In September,, A1c was 10.2% will redraw in the morning. Continue sliding scale insulin, diabetic diet, Accu-Cheks before meals at bedtime. Qualifiers: Diabetes mellitus type: type 2 Diabetes mellitus complication status: with circulatory complication Diabetes mellitus complication detail: with other circulatory complications Qualified Code(s): E11.59 - Type 2 diabetes mellitus with other circulatory complications (6) CAD (coronary artery disease) of bypass graft Current Visit: Yes Status: Acute Assessment and plan: Chronic. Prior history of CAD, prior CABG/PCI. Per cardiology recommendation, stop Imdur and nitroglycerin patch, start nitroglycerin drip as BP tolerates. Patient has been hypotensive this afternoon. Patient had an abnormal EKG that was suggestive of ischemia. Patient had chest pain throughout the day. Due to her refusal of any testing or procedures, we were optimizing her medical treatment by offering her a GI cocktail per GI services, we have added Carafate, Protonix, and Chloraseptic spray for patient's reported sore throat after emesis. Patient's left anterior chest wall was also tender to palpation, Lidoderm patch was applied for pain control. Plan as above. Qualifiers: [place] vs. transplanted heart: [place] Associated angina: with unspecified angina Qualified Code(s): I25.709 - Atherosclerosis of coronary artery bypass graft(s), unspecified, with unspecified angina pectoris (7) DVT prophylaxis Current Visit: Yes Status: Acute Assessment and plan: The patient is anticoagulated on Coumadin. She has a long-standing history of multiple DVTs the left lower extremity. Due to AL, Coumadin has been held and patient has been placed on a heparin drip. Plan as above. (8) UTI (urinary tract infection) due to Enterococcus Current Visit: Yes Status: Acute Assessment and plan: UA grossly indicative of a UTI. Culture showed enterococcus, sensitivity is still pending. Patient is currently being treated with Levaquin based on prior urine culture and sensitivities. Patient was initially treated with Cipro, that had to be stopped due to poor renal function. Infectious disease was consulted for recommendations on length of antibiotic treatment and recommendations, although sensitivity is still pending. I appreciate their recommendations and consultation. Currently we are waiting enterococcus species and will discuss antibiotics accordingly. Currently antibiotics are not recommended. Currently, patient is afebrile, pulses within normal limits. She does however have hypotension which is most likely related to NSTEMI. Levaquin 750 mg IV daily has been stopped and we will wait on sensitivity results. Infectious disease is following and assisting with antibiotic selection, as well as length of treatment. - Time Spent With Patient Greater than 35 minutes - Subjective Interval history: Patient was seen and assessed at bedside at 8:30 AM. Son was at bedside. I spent greater than 35 minutes with this patient today. She was seen and evaluated several times by me, as well as being seen by Dr. Blanca. As per prior notes states, patient was refusing all treatment including Rudd catheter , nuclear stress test, she was also refusing medications for nausea despite reporting nausea. Patient was nothing by mouth for great part of the morning and declined IV pain medication for chest pain. She was evaluated by GI for suspected GI bleed, and declined EGD. Patient is alert, oriented, answers questions appropriately and verbalized understanding when risks and benefits of testing or procedures are discussed. Patient had initially elevated troponin of 0.10, later in the day subsequent troponin was 4.71, last troponin at almost 1800 was 15.26. She was evaluated by cardiology, as well as interventional cardiology. She was to go to catheter lab, however due to reported anaphylaxis by patient with IVP dye, patient on not be able to have LHC. Prior to the discussion, patient was made aware of the risk and benefit of having an LHC including worsening renal function and dialysis. Patient was aware and denied questions. business support manager and I discussed CODE STATUS, patient wishes to continue to be a full code. Cardiology was going to speak with patient's son regarding her condition. Stat echo has been ordered, as well as stat V/Q to assess for PE and stat portable chest x-ray. The patient has been transferred to [facility] - Constitutional Vitals: Temp Pulse Resp BP Pulse Ox 97.8 F 79 16 95/67 94 02/20/17 16:00 02/20/17 16:00 02/20/17 16:00 02/20/17 16:00 02/20/17 16:00 General appearance: Present: cooperative, mild distress, A&O X 3, answers questions appropriately - Head Head exam: Present: atraumatic, normal inspection, normocephalic - Eye Eye exam: Present: normal appearance, conjuntiva pink, sclera anicteric - Neck Neck exam general surgery: Present: supple, trachea midline. Absent: lymphadenopathy - Respiratory Respiratory exam: Present: chest wall tenderness, CTAB. Absent: accessory muscle use, rales, respiratory distress, rhonchi, wheezes - Cardiovascular Cardiovascular exam: Present: RRR, +S1, +S2. Absent: diastolic murmur, gallop, irregular rhythm, rubs, systolic murmur - GI/Abdominal GI/Abdominal exam: Present: normal bowel sounds, soft, no peritoneal signs. Absent: distended, hepatomegaly, tenderness - Extremities Exam Extremities exam: Present: normal capillary refill, warm, radial pulses palpable and symmetrical. Absent: calf tenderness, cyanotic, pedal edema, tenderness - Neurological Exam Neurological exam: Present: alert, oriented X3, no focal deficits. Absent: facial droop, speech deficit - Skin Skin exam: Present: dry, intact, normal color, warm. Absent: rash Internal Medicine: Result - Labs CBC & Chem 7: 02/20/17 17:55 02/20/17 07:12 Labs: Short CBC 02/20/17 02/20/17 Range/Units 07:12 17:55 WBC 10.5 12.6 H (4.3-11.1) K/mcL Hgb 9.4 L 8.8 L (11.5-15.4) g/dL Hct 29.1 L 28.0 L (35.3-44.9) % Plt Count 236 216 (140-400) K/mcL Neutrophils # 10.0 H (1.6-8.9) K/mcL BMP 02/20/17 07:12 Sodium 136 Potassium 4.9 Chloride 106 Carbon Dioxide 20 L BUN 49 H Creatinine 1.88 H Glucose 289 H Calcium 8.7 Cardiac Enzymes 02/20/17 02/20/17 02/20/17 Range/Units 07:12 13:24 17:55 Troponin I 0.10 H* 4.71 H* 15.26 H* (< 0.04) ng/mL - ABG Interpretation ABG results: PT/INR, D-dimer PT 19.8 Seconds (9.4-12.1) H 02/20/17 07:12 - VTE Reasons for not Prescribing Prophylaxis: Not indicated-Anticoagulated or INR therapeutic Consult Discharge Plan - Plan Referrals: Danny Rodarte Jr, MD [Primary Care Provider] - 03/01/17 10:00 am
--- NOTE | 2017-02-20 19:03 | Event Note ---
Date of Encounter: 02/20/17 Time of Encounter: 18:49 - Cardiology Event Note 77 YOF with multiple CRF's and comorbidities including DVT's, anemia, GI Bleed, CLARISSA, UTI and cellulitis. Patient complained of chest pain found to have elevated troponins of 4.7 today. Patient also described CP and EKG revealed significant ischemic changes. I was called by Dr. Aranda at 16:00 to proceed with a LHC. Patient does have multiple risk factors and comorbidities making her LHC high risk. Risks of worsening bleed, CKD and possible hemodialysis among the risks of the procedure. During evaluation for the LHC patient was noted to have an allergy to IVP dye with previous anaphylactic shock, swelling of her airway and hives. Patient was administered IV solumedrol but was allergic to benadryl also so was not given. The patient then refused to proceed with a LHC due to the risk of anaphylactic shock during the procedure. I offered protection of her airway with intubation and temporary ventilation but she declined both the LHC and Intubation. I explained the high risk of morbidity and mortality with her ongoing NC and she clearly responded she understands but does not want to take a risk of anaphylactic shock. She has accepted medical management of her NC but NO LHC or Intubation. Patient currently complaining of nausea with blood tinge, will advise primary team. Patient is on heparin and plavix with hx of GI bleed and Hgb of 8.0 I called her son iWlly once again and discussed the above and he responded that she makes her own decisions and he asked us to respect her wishes. Dr Aranda was advised of her refusal and he will assume her NC medical management.
[2017-02-20 20:36] VITALS: BP 106/65
[2017-02-20] MEDS ORDERED: *HR* Acetylcysteine 20% 600 MG/3 ML ORAL SYRINGE PO SCH (21:00)
[2017-02-20] MEDS ORDERED: *HR* Atropine Sulfate 1 MG/10 ML SYRINGE ONE (22:23)
[2017-02-20 22:29] LABS: Basophils % 0.2 %; Eosinophils % 0.1 %; Hematocrit 27.5 % (35.3-44.9); Hemoglobin 8.4 g/dL (11.5-15.4); Immature Granulocytes % 2.8 % (0-4); Lymphocytes # 3.1 K/mcL (0.6-4.6); Lymphocytes % 16.7 %; Mean Corpuscular HGB Conc 30.5 g/dL (31.6-35.5); Mean Corpuscular Hemoglobin 31.2 pg (28.0-33.3); Mean Corpuscular Volume 102.2 fL (83.0-100.0); Monocytes # 0.2 K/mcL (0.0-1.3); Monocytes % 1.2 %; Neutrophils # 14.4 K/mcL (1.6-8.9); Nucleated Red Blood Cells 0.1 /100 WBC (0); Platelet Count 222 K/mcL (140-400); Red Blood Count 2.69 M/mcL (3.82-4.97); Red Cell Distribution Width 14.1 % (11.5-14.5)
[2017-02-20 22:31] LABS: ABG Base Excess -10 mEq/L (-2 to 3); ABG HCO3 15 mEq/L (21-27); ABG Oxygen Saturation 100 % (95-98); ABG PCO2 28 mmHg (35-45); ABG PH 7.33 pH Units (7.32-7.45); ABG PO2 313 mmHg (85-104); ABG TCO2 16 mEq/L (20-26); Blood Gas Modality VC; Blood Gas PEEP 5 cm H2O; Blood Gas Respiration Rate 14; Blood Gas VT 450 cc
[2017-02-20] MEDS ORDERED: *HR* Norepinephrine 4 MG/4 ML VIAL IVC ONE (22:33)
[2017-02-20] MEDS ORDERED: D5% in Water 250 ML ONE (22:33)
[2017-02-20 22:41] LABS: INR 2.7; Prothrombin Time 29.2 Seconds (9.4-12.1)
[2017-02-20 22:46] LABS: Activated Partial Thrombo Time 60.8 Seconds (26.0-36.0)
[2017-02-20 22:53] LABS: Albumin 2.5 g/dL (3.5-5.7); Albumin/Globulin Ratio 0.8 (1.1-2.2); Bilirubin,Total 0.2 mg/dL (0.3-1.0); Calcium 7.8 mg/dL (8.6-10.3); Globulin 3.2 g/dL (2.4-3.5); Magnesium 2.1 mg/dL (1.6-2.6); Potassium 3.2 mEq/L (3.5-5.1); Total Protein 5.7 g/dL (6.4-8.9)
--- NOTE | 2017-02-20 23:16 | Event Note ---
Date of Encounter: 02/20/17 Time of Encounter: 21:40 Pt was found nonresponsive and EKG shows straight line, no pulse, Code blue is called. Pt was started CPR immedaitely. Pt was given Epi x 1, bicarbonate 50mEq. Pt regain pulse. Pt was intubated and transferred to ICU. Lab ordered. Pt cannot maintain HR and BP, dopamine drip started and plan for central line. 10:35pm, pt was found pulseless again and code blue was called again. Pulse regained on Epi x2. Pt was also given bicarbonate 50mEq again and amiodarone 150mg. Pt still cannot maintain HR, HR get done to 40 and atropine 0.5mg iv was given, HR not resond to atropine, atropine 1 mg iv once given, HR still not responsive. Plan for Epi drip. At the same time, pt's son was called and he decide to change the code status to DNRCCA (confirmed by me and the in-brim stiffener ). Pt has no pulse again (PEA), no further CPR. Examine pt shows no heart sound , b/l pupil dilated and fixed, not react to light. announced at 11:00 pm .
--- NOTE | 2017-02-20 23:19 | Death Note ---
Pronouncement Note - Date and Time of Date of : 02/20/17 Time of : 23:00 - PCOD Preliminary cause of : Cardiac arrest - Summary Additional details: See Event note - Additional Data Confirmation of : no pulse, no heart sounds, pupils fixed and dilated Family: contacted Attending physician: Jia Bach CNP Was code activated?: Yes Autopsy requested?: No forensic medical examiner notified?: No Organ bank notified?: No Advance directives: Yes (Changed to DNRCCA per pt's son Dinh)
--- NOTE | 2017-02-21 11:11 | Electrocardiograph Report ---
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
== END 2017-02-20 23:00 | disposition expired ==
LOC: EMEROO 18:50 → 3BNU 18:50 → 2NNU 02-20 18:26 → ICNU 02-20 22:13
PROVIDERS: ADMIT Internal Medicine; ATTEND Registered Nurse